=== PATIENT | female | born 1970 | race African-American/Black ===

== ENCOUNTER 2024-10-01 12:18 | Outpatient (CLI) | payer OTHER, SELFPAY ==
--- NOTE | ~2024-10-01 | CT_ITS ---
EXAMINATION: CT abdomen pelvis wo con DATE: 10/01/2024 12:43 INDICATION: Incisional hernia without obstruction or gangrene. TECHNIQUE: Computed tomography (CT) of the abdomen and pelvis was performed without intravenous contr ast. Automated exposure control and iterative reconstruction technique were employed. The dose-length product was 830.70 mGy-cm. COMPARISON: None. FINDINGS: The visualized portions of the lung bases demonstrate mild atelectasis. There is mild eleva tion of right hemidiaphragm. The heart size is normal. No pericardial effusion. There is a 3.2 cm cys t in the liver. There are gallstones in gallbladder, which is normal in size. There is splenosis in t he abdomen. The pancreas, adrenal glands, and kidneys are normal. There is no urolithiasis. There are surgical changes of the sigmoid colon. There are no dilated loops of bowel. The appendix is normal. There is a left-sided spigelian hernia containing nonobstructed small bowel. There are no pathologica lly enlarged lymph nodes. There is no free intraperitoneal fluid. There is a ventral hernia containin g fat. There is severe thoracic spondylosis and mild lumbar spondylosis. IMPRESSION: 1. Left-sided spigelian hernia containing nonobstructed small bowel. 2. Umbilical hernia containing fat. Reviewed, dictated and finalized at location A. [employer]OR [employer]
== END 2024-10-01 12:19 | disposition home or self-care (01) ==
LOC: MICIMG 12:22
PROVIDERS: PCP Surgery; Visit Provider Surgery
DX: K42.9 Umbilical hernia without obstruction or gangrene (principal)
CPT/HCPCS: 74176

== ENCOUNTER 2024-10-31 14:00 | Outpatient (CLI) | payer OTHER, SELFPAY ==
--- NOTE | ~2024-10-31 | MR_ITS ---
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 15 cc MultiHance administered intravenously. COMPARISON: No prior studies for comparison. FINDINGS: There are no abnormalities on the precontrast sequences. There is minimal background parenc hymal enhancement. No enhancing lesions following contrast administration. No areas of enhancement meeting threshold criteria on CAD analysis. No evidence of signal abnormalities in the axillary or i nternal mammary node distributions. LEFT BREAST: There are prominent ducts in the left breast extending to the nipple. There is minimal b ackground parenchymal enhancement. There is a subareolar focus of rapid washout enhancement measuring 5 mm, possibly intraductal. No evidence of signal abnormalities in the axillary or internal mammary node distributions. IMPRESSION: 1: Right breast: Negative. No evidence of malignancy. BI-RADS category 1. Recommend annual mammo graphy follow-up. 2: Left breast: Enhancing 4 mm focus with rapid washout enhancement in the subareolar location, poss ibly intraductal. There is dilation of the ducts more proximally. Recommend correlation with diagnost ic bilateral mammogram and ultrasound. BI-RADS CATEGORY 0 - INCOMPLETE STUDY, NEED ADDITIONAL IMAGING EVALUATION. Reviewed, dictated and finalized at location B. MTABLE ATTENDANT RAILROAD IMPRESSION: 1: Right breast: Negative. No evidence of malignancy. BI-RADS category 1. Recommend annual mammography follow-up. 2: Left breast: Enhancing 4 mm focus with rapid washout enhancement in the sub areolar location, possibly intraductal. There is dilation of the ducts more pro ximally. Recommend correlation with diagnostic bilateral mammogram and ultrasou nd. BI-RADS CATEGORY 0 - INCOMPLETE STUDY, NEED ADDITIONAL IMAGING EVALUATION.
== END 2024-10-31 14:01 | disposition home or self-care (01) ==
PROVIDERS: PCP Physician Assistant; Visit Provider Student in an Organized Health Care Education/Training Program
DX: N64.52 Nipple discharge (principal); R92.8 Other abnormal and inconclusive findings on diagnostic imaging of breast
CPT/HCPCS: 77049; A9577; C8908

== ENCOUNTER 2024-11-26 12:51 | Outpatient (CLI) | payer OTHER, SELFPAY ==
--- NOTE | ~2024-11-26 | MMUS_ITS ---
EXAMINATION: MM diagnostic katharina BI w santa, US breast LT limited HISTORY: Bloody discharge, abnormal breast MRI TECHNIQUE: 3-D tomosynthesis images of the breasts were performed and synthetic 2-D images were gener ated. CAD analysis was submitted and interpreted. High resolution limited left breast ultrasound was performed. COMPARISON: Breast MRI dated 10/31/2024 BREAST PARENCHYMAL COMPOSITION:Not Dense. There are scattered areas of fibroglandular density. FINDINGS: MAMMOGRAPHIC FINDINGS: Parenchymal pattern of the right breast is unremarkable. In the left breast, there are several low-de nsity circumscribed masses in the central breast, largest measuring 10 mm in maximum diameter. No nehemiah picious microcalcifications seen in either breast. ULTRASOUND: There are focally dilated ducts at the 3:00 position left breast, 6 cm from the nipple. No intraducta l mass or other mass lesion identified in the left breast in the region scanned. IMPRESSION: Several circumscribed low-density small central left breast mass is seen mammographically, without d efinite sonographic correlate. By mammographic and sonographic criteria, these would constitute proba kike benign findings, with six-month follow-up mammogram/ultrasound recommended to reassess. Lack of s uspicious mammographic or sonographic findings should not however preclude further workup at this edie e for the suspicious/abnormal finding on recent breast MRI, with a possible enhancing intraductal les ion, possibly intraductal papilloma given history of bloody discharge. Breast surgical consultation i s advised. BI-RADS category 4, suspicious findings. Reviewed, dictated and finalized at location M. ITY COMPLIANCE MANAGER IMPRESSION: Several circumscribed low-density small central left breast mass is seen mammo graphically, without definite sonographic correlate. By mammographic and sonogr aphic criteria, these would constitute probably benign findings, with six-month follow-up mammogram/ultrasound recommended to reassess. Lack of suspicious katharina mographic or sonographic findings should not however preclude further workup at this time for the suspicious/abnormal finding on recent breast MRI, with a pos sible enhancing intraductal lesion, possibly intraductal papilloma given histor y of bloody discharge. Breast surgical consultation is advised. BI-RADS category 4, suspicious findings.
== END 2024-11-26 12:52 | disposition home or self-care (01) ==
LOC: ANHIMG 12:52
PROVIDERS: PCP Physician Assistant; Visit Provider Student in an Organized Health Care Education/Training Program
DX: R92.8 Other abnormal and inconclusive findings on diagnostic imaging of breast (principal)
CPT/HCPCS: 76642; 77062; 77066; G0279

== ENCOUNTER 2024-12-10 14:09 | Outpatient (CLI) | payer OTHER, SELFPAY ==
--- NOTE | 2024-12-10 14:24 | ECG_ITS ---
Test Date: 2024-12-10 14:45:39 Measurements Intervals Bostic Rate: 79 P: 75 HI: 150 QRS: 139 QRSD: 89 T: -30 QT: 396 QTc: 456 Interpretive Statements SINUS RHYTHM POSSIBLE ANTERIOR MYOCARDIAL INFARCTION [30 ms Q WAVE IN V3/V4, OR R < 0.2 mV IN V4], OF INDETERMINATE AGE INFERIOR MYOCARDIAL INFARCTION [40+ ms Q WAVE AND/OR ST/T ABNORMALITY IN II/aVF], PROBABLY OLD No previous ECG available for comparison Electronically Signed On 12-11-2024 10:56:20 GROUNDS MAINTENANCE WORKER by Rod Zuluaga M.D.
--- OUTSIDE RECORDS SUMMARY | 2024-12-10 15:06 | XMS_ITS | Clinical Summary ---
Author Organization [facility] [employer] Address [address] [place] [address] Care Team Providers Care Cell Attendant Name Role Phone Unavailable Primary Care Provider Unavailabl e Source Comments [facility],non-owned Affiliates and Associated Physician Practices is amultiple site organization consisting of ambulatory clinics and hospital sitesin [place], [place], [place] and [place]. This disclosure is being madepursuant to the Care Everywhere program and may not contain all information available regarding this patient. Last updated 18.[facility] [employer] Allergies No known active allergies Medications * Be aware that medications may not be up to date on this document. Alwaysverify current medications with the patient. Medication Sig Dispensed Refills Start Date End Date Status LISINOPRIL PO Active ATORVASTATIN CALCIUM PO Active PHENTERMINE HCL PO Active benzonatate (TESSALON) 200 MG capsuleIndications:Ac dianne bronchitis, unspecified organism Take 1 capsule by mouth 3 times daily as needed for Cough 30 capsule 02/05/2019 Active albuterol HFA (PROVENTIL;VENTOLIN;P ROAIR) 108 (90 BASE) MCG/ACT inhalerIndications:Ac dianne bronchitis, unspecified organism Inhale 2 puffs by mouth every 4 hours as needed 1 Inhaler 02/05/2019 Active Encounters Date Type Department Care Team Description 12/04/2024 4:21 PM ELECTRO MECHANICAL ENGINEER - 12/04/2024 11:59 PM ELECTRO MECHANICAL ENGINEER Hospital Encounter [facility] [address] [place] [id number] Marcos Velasco MD Discharge Disposition: Home or Self Care 12/04/2024 1:34 PM ELECTRO MECHANICAL ENGINEER - 12/04/2024 4:20 PM ELECTRO MECHANICAL ENGINEER Hospital Encounter [facility] [address] [place] [address] Marcos Velasco MD Discharge Disposition: Home or Self Care 12/04/2024 1:33 PM ELECTRO MECHANICAL ENGINEER Hospital Encounter [facility] [address] [place] [address] Marcos Velasco MD Discharge Disposition: Home or Self Care from Last 3 Months Social History Tobacco Use Types Packs/Day Years Used Date Smoking Tobacco: Never Smokeless Tobacco: Never Sex and Gender Information Value Date Recorded Sex Assigned at Not on file Gender Identity Not on file Sexual Orientation Not on file Last Filed Vital Signs Vital Sign Reading Time Taken Comments Blood Pressure 124/86 08/01/2019 12:44 PM CDT Pulse 66 08/01/2019 12:44 PM CDT Temperature 36.7 ??C (98.1 ??F) 08/01/2019 12:44 PM C DT Respiratory Rate 19 08/01/2019 12:44 PM CDT Oxygen Saturation 95% 08/01/2019 12:44 PM CDT Inhaled Oxygen Concentration - - Weight 78.5 kg (173 lb) 08/01/2019 12:44 PM CDT Height 157.5 cm (5' 2 ) 08/01/2019 12:44 PM CDT Body Mass Index 31.64 08/01/2019 12:44 PM CDT Plan of Treatment Health Maintenance Due Date Last Done Comments COLOGUARD (AGES 45-75) - COL ON CA SCREENING 1971 COLON MONITORING 1971 COLONOSCOPY - COLON CA SCREENING 1971 CT COLONOGRAPHY - COLON CA SCREENING 1971 Colorectal Cancer Screening 1971 FIT - COLON CA SCREENING 1971 FLEX SIG - COLON CA SCREENING 1971 MAMMOGRAM 1971 PAP SMEAR 1971 HIV SCREENING 1986 HEPATITIS C SCREENING 06/10/1989 DTAP/TDAP/TD VACCINES (1 - Tdap) 1990 HEPATITIS B VACCINE (1 of 3 - 19+ 3-dose series) 1990 SCREENING FOR DIABETES 02/05/2019 PNEUMOCOCCAL VACCINE 50+ (1 of 1 - PCV) 2021 ZOSTER VACCINE (1 of 2) 2021 COVID-19 VACCINE (2023-2 5 season) 2024 INFLUENZA VACCINE (#1) 2024 DEPRESSION SCREENING 11/12/2024 HIB VACCINE Aged Out No longer eligi ble based on patient's age to complete this topic HPV VACCINE Aged Out No longer eligi ble based on patient's age to complete this topic MENINGOCOCCAL (Group B) VACCINE Aged Out No longer eligible based on patient's age to complete this topic MENINGOCOCCAL VACCINE Aged Out No hayley breonna eligible based on patient's age to complete this topic
--- OUTSIDE RECORDS SUMMARY | 2024-12-10 15:06 | XMS_ITS | Referral Summary ---
Author Organization [facility] Address [address] [place] [address] Care Team Providers Care Sleep Medicine Physician Name Role Phone Unavailable Primary Care Provider Unavailabl e Source Comments [facility],non-owned Affiliates and Associated Physician Practices is amultiple site organization consisting of ambulatory clinics and hospital sitesin [place], [place], [place] and [place]. This disclosure is being madepursuant to the Care Everywhere program and may not contain all information available regarding this patient. Last updated 18.[facility] Encounters Date Type Department Care Team Description 12/04/2024 4:21 PM LEVEL GLASS VIAL FILLER - 12/04/2024 11:59 PM [facility] Hospital Encounter [address] [address] Marcos Velasco MD Discharge Disposition: Home or Self Care 12/04/2024 1:34 PM LEVEL GLASS VIAL FILLER - 12/04/2024 4:20 PM [facility] Hospital Encounter [address] [address] Marcos Velasco MD Discharge Disposition: Home or Self Care 12/04/2024 1:33 PM [facility] Hospital Encounter [address] [address] Marcos Velasco MD Discharge Disposition: Home or Self Care from Last 3 Months Allergies No known active allergies Medications * Be aware that medications may not be up to date on this document. Alwaysverify current medications with the patient. Medication Sig Dispensed Refills Start Date End Date Status LISINOPRIL PO Active ATORVASTATIN CALCIUM PO Active PHENTERMINE HCL PO Active benzonatate (TESSALON) 200 MG capsuleIndications:Ac [place] bronchitis, unspecified organism Take 1 capsule by mouth 3 times daily as needed for Cough 30 capsule 02/05/2019 Active albuterol HFA (PROVENTIL;VENTOLIN;P ROAIR) 108 (90 BASE) MCG/ACT inhalerIndications:Ac [place] bronchitis, unspecified organism Inhale 2 puffs by mouth every 4 hours as needed 1 Inhaler 02/05/2019 Active Social History Tobacco Use Types Packs/Day Years [...] 08/01/2019 12:44 PM CDT Plan of Treatment Not on file Administered Medications
--- OUTSIDE RECORDS SUMMARY | 2024-12-10 15:06 | XMS_ITS | Patient Health Summary ---
Author Organization [facility] Address [address] [place] [address] Care Team Providers Care Machine Sorter Name Role Phone Unavailable Primary Care Provider Unavailabl e Note from [facility],non-owned Affiliates and Associated Physician Practices is amultiple site organization consisting of ambulatory clinics and hospital sitesin [place], [place], [place] and [place]. This disclosure is being madepursuant to the Care Everywhere program and may not contain all information available regarding this patient. Last updated 18.[facility] [employer] Allergies No known active allergies Medications * Be aware that medications may not be up to date on this document. Alwaysverify current medications with the patient. * LISINOPRIL PO * ATORVASTATIN CALCIUM PO * PHENTERMINE HCL PO * benzonatate (TESSALON) 200 MG capsule(Started 02/05/2019) Take 1 capsule by mouth 3 times daily as needed for Cough * albuterol HFA (PROVENTIL;VENTOLIN;PROAIR) 108 (90 BASE) MCG/ACT inhaler (Started 02/05/2019) Inhale 2 puffs by mouth every 4 hours as needed Social History Tobacco Use Types Packs/Day Years [...] Mass Index 31.64 08/01/2019 12:44 PM CDT Procedures * SKIN TEST PPD - POINT OF CARE(Performed 06/11/2020) Performed for PPD screening test * CULTURE URINE(Performed 08/01/2019) Performed for Acute cystitis without hematuria * URINALYSIS AUTO - POINT OF CARE (AMB) STL(Performed 08/01/2019) Performed for Acute cystitis without hematuria Results * SKIN TEST PPD - POINT OF CARE (06/11/2020 10:32 AM CDT) PPD 0 mm Other MISCELLANEOUS SAMPLE S / Unknown 06/11/2020 10:32 AM CDT Chanda Zendejas [employer] DOCK [employer] - POINT OF CARE ORDERABLES * CULTURE URINE (08/01/2019 1:31 PM CDT) Urine Culture Routine Final report [facility] ACCOUNT BILL Result 1 No growth [facility] ACCOUNT BILL Urine URINE SPECIMEN OBTAINED BY CLEAN CATCH PROCEDURE / Unknown 08/01/2019 1:31 PM CDT 08/01/2019 Narrative Resulting Agency Comment Lab Testing performed at: [facility] [place] [address] [facility] ??[facility] [id number] Trina Ann [employer]AT DOCK OPERATOR[facility] - MICROBIOLOG Y ORDERABLES [facility] ACCOUNT BILL [address] [place] [address] * URINALYSIS AUTO - POINT OF CARE (AMB) STL (08/01/2019) Clarity UA POCT clear Color UA POCT light yellow Leukocyte UA 70 Negative Nitrite UA POCT Negative Negative Urobilinogen UA 0.2 0.1 - 1.0 Protein UA POCT 15 Negative pH UA 6.0 5.0 - 8.0 pH units Blood UA negative Negative Specific [place] UA POCT 1.005 1.002 - 1.030 Ketone UA Negative Negative Bilirubin UA POCT Negative Negative Glucose UA Negative Negative Expiration Date 01/28/21 Lot # [id number] Verified Yes Yes Urine URINE / Unknown 08/01/2019 Trina Ann [employer]AT DOCK OPERATOR[facility] - POINT OF CA RE ORDERABLES
--- OUTSIDE RECORDS SUMMARY | 2024-12-10 15:06 | XMS_ITS | Clinical Summary ---
Author Organization [facility] Address [address] [place] [address] Care Team Providers Care Emulsification Operator Name Role Phone Unavailable Primary Care Provider Unavailabl e Social History Tobacco Use Types Packs/Day Years Used Date Smoking Tobacco: Never Assessed Comments Unknown Sex and Gender Information Value Date Recorded Sex Assigned at Not on file Legal Sex Female 11:40 AM BRICKMASON Gender Identity Not on file Sexual Orientation Not on file Plan of Treatment Health Maintenance Due Date Last Done Comments Hepatitis C Virus (HCV) Screening 1971 TdaP Immunization 1971 Hepatitis B Immunization (1 of 3 - 19+ 3-dose series) 1990 Pap Smear 1992 Cervical Cancer Screening (CCS) 2001 HPV/Cotest 2001 Colonoscopy 2016 Colorectal Cancer Screening 2016 Cologuard 2021 Immunochemical Fecal Occult Blood 2021 Mammogram 2021 Pneumococcal Immunization (5 0+ years) (1 of 1 - PCV) 2021 Zoster Immunization (1 of 2) 2021 Influenza Immunization (#1) 2024 SARS-COV-2 Immunization ( - 2023- season) 2024 Respiratory Syncytial Virus (RSV) Immunization (Adult) (1 - 1-dose 75+ series) 2046 Meningococcal Immunization (ACWY) Aged Out No longer eligible based on patient's age to complete this topic Pneumococcal Immunization Combined Aged Out No longer eligible based on patient's age to complete this topic Rotavirus Immunization Aged Out No lo nger eligible based on patient's age to complete this topic
[2024-12-10 15:26] LABS: Hematocrit 42.6 % (37.0-47.0); Hemoglobin 14.4 g/dL (12.0-15.0)
[2024-12-10 15:36] LABS: Anion Gap 12 mmol/L (4-12); Blood Urea Nitrogen 15 mg/dL (7-17); Calcium 8.8 mg/dL (8.4-10.2); Carbon Dioxide 26 mmol/L (22-30); Chloride 99 mmol/L (98-107); Estimated Glomerular Filt Rate > 60; Glucose 102 mg/dL (65-110); Potassium 3.2 mmol/L (3.4-5.0); Sodium 137 mmol/L (137-145)
== END 2024-12-10 14:10 | disposition home or self-care (01) ==
LOC: ANHSURGERY 14:13
PROVIDERS: Anesthesiology; PCP Physician Assistant; Visit Provider Surgery
DX: K43.2 Incisional hernia without obstruction or gangrene (principal); E11.9 Type 2 diabetes mellitus without complications; I10 Essential (primary) hypertension
CPT/HCPCS: 36415; 80048; 85014; 85018; 86850; 86900; 86901; 93005

== ENCOUNTER 2025-01-28 08:42 | Outpatient (CLI) | payer OTHER, SELFPAY ==
--- NOTE | ~2025-01-28 | NM_ITS ---
EXAMINATION: NM elli stress w perfusion DATE: 01/28/2025 11:37 INDICATION: Encounter for preprocedural cardiovascular exam TECHNIQUE: Rest images were obtained following intravenous administration of 10.3 mCi Tc99m tetrofosm in (Myoview). The patient was infused intravenously with Lexiscan (Regadenoson). Then, 31.8 mCi Tc99m tetrofosmin (Myoview) was administered intravenously, and stress images were obtained. Data was livan nstructed into short axis and horizontal and vertical long axis SPECT images. Gated SPECT images were also obtained. COMPARISON: None. FINDINGS: There is no definite reversible or fixed perfusion abnormality to suggest ischemia or infar ction. There is normal left ventricular chamber size, wall motion and ejection fraction. Left ventr icular ejection fraction measures >70%. IMPRESSION: 1. Normal myocardial perfusion at rest and during stress. 2. Left ventricular ejection fraction measuring >70%. Reviewed, dictated and finalized at location A.
--- NOTE | 2025-01-28 08:48 | EST_ITS ---
Patient Info Name: Tri Parker Age: 54 years : 1970 Gender: Female Ht: 62 in Wt: 170 lbs BSA: 1.87 m2 HR: 63 bpm BP: 114 / 75 mmHg Exam Date: 01/28/2025 10:39 AM Exam Location: Echo Lab Patient Status: Outpatient Admit Date: 01/28/2025 Staff Ordering Physician: Franko Meraz DO Attending Provider: Franko Meraz DO Exercise Technologist: nick garza Exercise Physician: Franko Meraz DO Exam Type: CA stress elli w NM Study Info A regadenoson stress test was performed. Summary 1. 1. Abnormal lexiscan stress test for ischemic ST changes by ECG criteria. 2. 2. Stable hemodynamics throughout the test. 3. 3. Nuclear scan to follow and will be reported separately. Please correlate with it. 4. 4. Patient informed of the above results. Protocol: Lexiscan Stress ECG Details Stage: REST Duration (min): 2 min : 55 sec HR (bpm): 64 SBP (mmHg): 114 DBP (mmHg): 75 Stage: REST Duration (min): 15 min : 33 sec HR (bpm): 63 SBP (mmHg): 114 DBP (mmHg): 75 Stage: STAGE 1 Duration (min): 1 min : 0 sec HR (bpm): 100 SBP (mmHg): 126 DBP (mmHg): 81 Stage: RECOVERY Duration (min): 1 min : 0 sec HR (bpm): 100 SBP (mmHg): 126 DBP (mmHg): 81 Stage: RECOVERY Duration (min): 2 min : 0 sec HR (bpm): 93 SBP (mmHg): 126 DBP (mmHg): 81 Stage: RECOVERY Duration (min): 3 min : 0 sec HR (bpm): 93 SBP (mmHg): 113 DBP (mmHg): 80 Stage: RECOVERY Duration (min): 3 min : 14 sec HR (bpm): 87 SBP (mmHg): 113 DBP (mmHg): 80 Rest HR: 63 bpm Peak HR: 103 bpm Rest Sys BP: 114 mmHg Peak Sys BP: 126 mmHg Max Pred HR: 167 bpm % Max Pred HR: 62 % Target HR: 142 bpm Max RPP: 12,978 bpm*mmHg Termination Reason: Completed protocol Cardiac Symptoms: Shortness of breath Total Time: 1 min : 0 sec Rest Alfaro BP: 75 mmHg Peak Alfaro BP: 81 mmHg Total Dose: 0.4 mg Resting ECG Sinus rhythm. Stress ECG [address] depression in anterolateral leads. Arrhythmias None. Report Signatures
--- NOTE | 2025-01-28 08:48 | ECHO_ITS ---
Patient Info Name: Tri Parker Age: 54 years : 1970 Gender: Female Ht: 62 in Wt: 170 lbs BSA: 1.87 m2 HR: 61 bpm BP: 127 / 84 mmHg Technical Quality: Poor Exam Date: 01/28/2025 9:05 AM Exam Location: Echo Lab Patient Status: Outpatient Admit Date: 01/28/2025 Staff Ordering Physician: Franko Meraz DO Helper Driver: Bhumi Carrero RDCS Attending Provider: Franko Meraz DO Referring Physician: Kt HUBBARD; Exam Type: CA echo dop color flow w con Study Info Indications R06.09 - Other forms of dyspnea Complete two-dimensional, color flow and Doppler transthoracic echocardiogram is performed with contrast to opacify the left ventricle and to improve the deliniation of the left ventricle endocardial borders. Contrast/Agitated Saline Contrast/Ag. Saline: Definity Amount: 2.00 ml Existing IV Access: No IV Access Condition: patent with no signs of infiltration New IV Access: Left Reason for Poor Study: poor echocardiographic windows Summary 1. Definity contrast administered improved wall motion interpretation. 2. Left ventricular chamber dimension is normal. 3. Left ventricular systolic function is normal, estimated at 60-65%. 4. The left ventricular diastolic function is abnormal. 5. E/e' 10 is mildly elevated. 6. Right ventricular chamber dimension is mildly enlarged. 7. No pulmonary hypertension, estimated pulmonary arterial systolic pressure is 27 mmHg. Left Ventricle E/e' 10 is mildly elevated. Definity contrast administered improved wall motion interpretation. Left ventricular chamber dimension is normal. Left ventricular systolic function is normal, estimated at 60-65%. The left ventricular diastolic function is abnormal. Right Ventricle Right ventricular chamber dimension is mildly enlarged. Right ventricular systolic function is normal. Left Atria Left atrial chamber dimension is normal. Right Atria Right atrial chamber dimension is normal. Aortic Valve The aortic valve is trileaflet. There is no aortic valve stenosis. There is no aortic valve regurgitation. Pulmonic Valve There is no pulmonic regurgitation. Mitral Valve There is no mitral valve stenosis. There is no mitral valve regurgitation. Tricuspid Valve There is no tricuspid valve regurgitation. No pulmonary hypertension, estimated pulmonary arterial systolic pressure is 27 mmHg. Pericardium/Pleural There is no pericardial effusion. Inferior Vena Cava Normal inferior vena cava with >50% collapse upon inspiration consistent with normal right atrial pressure, 5 mmHg. Aorta The aortic root size at the sinus of Valsalva is normal. Left Ventricular Outflow Tract Name Value Normal LVOT 2D LVOT Diameter 1.96 cm LVOT Doppler LVOT Peak Gradient 2 mmHg LVOT Mean Gradient 1 mmHg LVOT VTI 15.84 cm LVOT VTI/AV VTI Ratio 0.84 LVOT Stroke Volume 47.59 ml LVOT CO 9.01 l/min LVOT CI 4.83 L/min/m2 Mitral Valve Name Value Normal MV Doppler MV Decel [place] 330.77 cm/s2 MV PHT 0 s MV Area (PHT) 3.59 cm2 4.00-5.00 MV Diastolic Function MV E Peak Velocity 69.84 cm/s MV A Peak Velocity 58.28 cm/s MV E/A 1.20 MV Decel Time 0 s MV Annular TDI MV E/e' (Septal) 11.77 <=8.00 MV E/e' (Lateral) 10.05 <=8.00 MV E/e' (Average) 10.91 Tricuspid Valve Name Value Normal TV Regurgitation Doppler TR Peak Velocity 232.30 cm/s TR Peak Gradient 22 mmHg Estimated PAP/RSVP RA Pressure 5 mmHg <=5 PA Systolic Pressure 27 mmHg <36 RV Systolic Pressure 27 mmHg <36 Aorta Name Value Normal Ascending Aorta Ao Root Diameter (MM) 2.79 cm Ao Root Diam Index (MM) 1.49 cm/m2 Aortic Valve Name Value Normal AV Doppler AV Peak Velocity 92.84 cm/s AV Peak Gradient 3 mmHg AV Mean Gradient 2 mmHg AV VTI 18.85 cm AV Area (Cont Eq VTI) 2.53 cm2 >=3.00 AV Area (Cont Eq Clarence) 2.24 cm2 AV Regurgitation 2D LVOT Area 3.00 cm2 Ventricles Name Value Normal LV Dimensions 2D/MM IVS Diastolic Thickness (2D) 0.97 cm 0.60-1.00 LVID Diastole (2D) 4.23 cm 3.80-5.20 LVIW Diastolic Thickness (2D) 0.91 cm 0.60-0.90 LVID Systole (2D) 2.57 cm 2.20-3.50 LVOT Diameter 1.96 cm LV Mass (2D Cubed) 127.33 g 67.00-162.00 LV Mass Index (2D Cubed) 0.01 g/cm2 0.00-0.01 Relative Wall Thickness (2D) 0.43 LV Fractional Shortening/Ejection Fraction 2D/MM LV Fractional Shortening (2D) 39 % 27-45 LV EF (2D Teicholz) 70 % 54-74 LV Diastolic Volume (4C MOD) 47.58 ml LV EF (4C MOD) 59 % LV Diastolic Volume (2C MOD) 66.02 ml LV EF (2C MOD) 75 % LV Diastolic Volume (BP MOD) 56.85 ml 46.00-106.00 LV Diastolic Volume Index (BP MOD) 0.03 l/m2 0.03-0.06 LV Systolic Volume (BP MOD) 18.03 ml 14.00-42.00 LV Systolic Volume Index (BP MOD) 0.01 l/m2 0.01-0.02 LV EF (BP MOD) 68 % 54-74 LV Diastolic Length (4C) 6.59 cm LV Systolic Length (4C) 4.85 cm LV Stroke Volume (4C MOD) 27.98 ml RV Dimensions 2D/MM RVID Diastole (2D) 3.28 cm 2.50-3.50 Atria Name Value Normal LA Dimensions LA Dimension (MM) 3.15 cm 2.70-3.80 LA Volume (4C A-L) 33.71 ml LA Volume (BP A-L) 32.52 ml Report Signatures
--- OUTSIDE RECORDS SUMMARY | 2025-01-28 09:14 | XMS_ITS | CONTINUITY OF CARE DOCUMENT ---
Author Name alpesh betts Address Unknown Organization [facility] Address [address] [place] [address] [place] [id number] Phone [phone] Care Team Providers Care Programming Development Project Manager Name Role Phone Bishop Medina MD Unavailable HATTIE MÉNDEZ Unavailable HATTIE MÉNDEZ Unavailable INSURANCE PROVIDERS Payer name Policy type / Coverage type [employer] party ID [id number] [id number] Other [id number]
--- OUTSIDE RECORDS SUMMARY | 2025-01-28 09:14 | XMS_ITS | Data Portability ---
Author Organization MD - [facility] [employer], Main Office Address [address] [place] [address] Assessment No assessment recorded. Plan of Treatment Reminders Order Date Submit Date Provider Last Modified By Organization Details Last Modified Time Details Appointments Follow Up 2024 01:15P ROBYN Davis Not available Not available Not available Lab HbA1c (hemoglob in A1c), blood 2024 025 [email or web address] [facility], [address] [place] [address], [id number], 12/09/2024 14:55:59 HbA1c (hemoglob in A1c), blood 2023 024 [email or web address] [facility], [address] [place] [address], [id number], 08/11/2024 08:31:09 HbA1c (hemoglob in A1c), blood 2023 024 HIEU [facility], [address] [place] [address], [address], 05/01/2024 22:43:52 HbA1c (hemoglob in A1c), blood 2023 024 [place], [address] [place] [address], [address], 01/30/2024 01:00:10 Referral None recorded. Procedures None recorded. Surgeries None recorded. Imaging MAMMO, diagnosti c, digital, bilateral - Please call pt to schedule 2023 024 [facility] ([facility]), [address] [place], [address], 09/10/2024 11:18:51 US, breast, unilatera l - Please call pt to schedule 2023 024 [facility] ([facility]), [address] [place], [address], 09/10/2024 11:24:07 Medication Orders Ozempic 2 mg/dose (8 mg/3 mL) subcutane ous pen injector 2023 [place] [employer], [facility], [place], [address], 08/04/2024 15:40:50 Patient TargetsNo targets recorded. Patient InstructionsNo instructions recorded. Reason for Referral None Reported. Results Created Date Observation Date Name Description Value Unit Range Abnormal Flag Note LastModifiedBy Organization Detail LastModifiedTime 07/14/2007/15/2023 COMP. METAB OLIC PANEL (14) glucose 86 mg/dL 70-99 Not Available [facility] ([facility]) [address] [place], [address], 07/15/2023 08:09:22 07/14/20 23 07/15/2023 COMP. METAB OLIC PANEL (14) BUN 18 mg/dL 6-24 Not Available [facility] ([facility]) [address] [place], [address], 07/15/2023 08:09:22 07/14/20 23 07/15/2023 COMP. METAB OLIC PANEL (14) creatinine 0.75 mg/dL 0.57-1 .00 Not Available [facility] ([facility]) [address] [place], [address], 07/15/2023 08:09:22 07/14/20 23 07/15/2023 COMP. METAB OLIC PANEL (14) eGFR 96 mL/mi n/1.7 3 >59 Not Available [facility] ([facility]) [address], [place], [address], 07/15/2023 08:09:22 07/14/20 23 07/15/2023 COMP. METAB OLIC PANEL (14) BUN/creatini ne ratio 24 9-23 above high normal Not Available [facility] ([facility]) [address] [place], [address], 07/15/2023 08:09:22 07/14/20 23 07/15/2023 COMP. METAB OLIC PANEL (14) sodium 140 mmol/ L 134-14 4 Not Available [facility] ([facility]) [address] [place], [address], 07/15/2023 08:09:22 07/14/20 23 07/15/2023 COMP. METAB OLIC PANEL (14) potassium 3.7 mmol/ L 3.5-5. 2 Not Available [facility] ([facility]) [address], [place], [address], 07/15/2023 08:09:22 07/14/20 23 07/15/2023 COMP. METAB OLIC PANEL (14) chloride 101 mmol/ L 96-106 Not Available [facility] ([facility]) [address] [place], [address], 07/15/2023 08:09:22 07/14/20 23 07/15/2023 COMP. METAB OLIC PANEL (14) carbon dioxide, total 22 mmol/ L 20-29 Not Available [facility] ([facility]) [address] [facility] [place], [address], 07/15/2023 08:09:22 07/14/20 23 07/15/2023 COMP. METAB OLIC PANEL (14) calcium 9.5 mg/dL 8.7-10 .2 Not Available [facility] ([facility]) [address] [facility] [place], [address], 07/15/2023 08:09:22 07/14/20 23 07/15/2023 COMP. METAB OLIC PANEL (14) protein, total 7.2 g/dL 6.0-8. 5 Not Available [facility] ([facility]) [address], [place], [address], 07/15/2023 08:09:22 07/14/20 23 07/15/2023 COMP. METAB OLIC PANEL (14) albumin 4.0 g/dL 3.8-4. 9 Not Available [facility] ([facility]) [address], [place], [address], 07/15/2023 08:09:22 07/14/20 23 07/15/2023 COMP. METAB OLIC PANEL (14) globulin, total 3.2 g/dL 1.5-4. 5 Not Available [facility] ([facility]) [address], [place], [address], 07/15/2023 08:09:22 07/14/20 23 07/15/2023 COMP. METAB OLIC PANEL (14) A/G ratio 1.3 1.2-2. 2 Not Available [facility] ([facility]) [address], [place], [address], 07/15/2023 08:09:22 07/14/20 23 07/15/2023 COMP. METAB OLIC PANEL (14) bilirubin, total 1.0 mg/dL 0.0-1. 2 Not Available [facility] ([facility]) [address], [place], [address], 07/15/2023 08:09:22 07/14/20 23 07/15/2023 COMP. METAB OLIC PANEL (14) alkaline phosphatase 81 IU/L 44-121 Not Available [facility] ([facility]) [address], [place], [address], 07/15/2023 08:09:22 07/14/20 23 07/15/2023 COMP. METAB OLIC PANEL (14) AST (SGOT) 19 IU/L 0-40 Not Available [facility] ([facility]) [address] [facility] [place], [address], 07/15/2023 08:09:22 07/14/20 23 07/15/2023 COMP. METAB OLIC PANEL (14) ALT (SGPT) 17 IU/L 0-32 Not Available [facility] ([facility]) [address] [facility] [place], [address], 07/15/2023 08:09:22 07/14/20 23 07/15/2023 LIPID PANEL cholesterol, total 152 mg/dL 100-19 9 Not Available [facility] ([facility]) [address] [facility] [place], [address], 07/15/2023 08:09:23 07/14/20 23 07/15/2023 LIPID PANEL triglyceride s 84 mg/dL 0-149 Not Available [facility] ([facility]) [address] [facility] [place], [address], 07/15/2023 08:09:23 07/14/20 23 07/15/2023 LIPID PANEL HDL cholesterol 37 mg/dL >39 below low normal Not Available [facility] ([facility]) [address] [facility] [place], [address], 07/15/2023 08:09:23 07/14/20 23 07/15/2023 LIPID PANEL VLDL cholesterol adriane 16 mg/dL 5-40 Not Available [facility] ([facility]) [address] [facility] [place], [address], 07/15/2023 08:09:23 07/14/20 23 07/15/2023 LIPID PANEL LDL chol calc (nih) 99 mg/dL 0-99 Not Available [facility] ([facility]) [address] [facility] [place], [address], 07/15/2023 08:09:23 07/14/20 23 07/15/2023 LIPID PANEL 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 Not Available [facility] ([facility]) [address] [facility], [place], [address], 07/15/2023 08:09:23 07/30/20 23 07/30/2023 scree noe breas t [place], bilat [facility] [address] [place] [address] [phone] Aure rodriguez Name: GEOVANNA PARKER Access ion #: [id number] Sex: F : 1969 1 Dictat ed By: Nghia Abraham Attend ing Physic eryn: ELKHAT IB, RUNDA Orderi ng Physic eryn: ELKHAT IB, RUNDA Exam Date: 2022 13:53 PM Exam Name: MG VASQUEZN BREAST [place] BILAT Admitt ing Diagno sis(es ): Compar brian: 2 Screen ing mammog domenic Techni que: Bilate ral CC and latera l images obtain ed are fulfil led with bilate ral tomosy nsthes is. Breast compos ition: fatty. Digita l techni que per standa rd protoc ol Findin gs: No suspic ious mass or calcif icatio n is identi fied. No gladis ectura l distor tion is seen. There are no abnorm alitie s around the nipple areola r comple x. No adenop athy is apprec iated. . Conclu conchis: No mammog raphic eviden ce of malign clary. Mammog raphic assess ment catego ry: BI-RAD S catego ry: 1 Negati ve A letter with the result s of this mammog domenic was mailed to the aure rodriguez [employer] on[employer] ly Signed by: Nghia Abraham at 2022 16:14: 21 PM Page 1 [email or web address] [facility] (Imaging) [address] [place], [address], 08/03/2023 13:10:23 07/30/20 23 07/30/2023 MAMMO , scree noe, bilat eral No observ ation record ed. [email or web address] [facility] [address] [place], [address], 08/03/2023 13:10:23 09/10/20 24 09/10/2024 CT, abdom en + pelvi s, w/o contr ast No observ ation record ed. [facility] [address] [place], [address], 09/22/2024 12:09:44 09/10/20 24 09/10/2024 MAMMO , diagn ostic , digit al, bilat eral No observ ation record ed. [facility] [address] [place], [address], 09/22/2024 12:09:45 09/10/20 24 09/10/2024 US, breas t, unila teral No observ ation record ed. [facility] [address] [place], [address], 09/22/2024 12:09:45 09/10/20 24 09/10/2024 MAMMO , diagn ostic , digit al, bilat eral No observ ation record ed. [facility] [address] [place], [address], 09/22/2024 12:09:46 10/31/20 24 10/31/2024 MRI, breas t, bilat eral, w/wo contr ast No observ ation record ed. [address], [address], 11/03/2024 11:33:29 11/26/19 25 11/26/2024 MAMMO , diagn ostic , digit al, bilat eral No observ ation record ed. [address], [address], 11/27/2024 08:07:26 12/17/19 25 12/17/2024 rhyth m strip , EKG* No observ ation record ed. [address] [facility] [address], [place], [address], 12/17/2024 11:15:44 Result Notes None recorded. Problems Name Problem SNOMED Code Status Onset Date Resolution Date Notes Provider Name and Address Organization Details Recorded Time Chest wall pain 553729270 Active Not Available [facility] 3 07:35:24 Foot callus 446776632 Active Not Available [facility] 3 07:35:24 Headache 17405448 Active Not Available [facility] 3 07:35:24 Anemia 919455274 Active Not Available [facility] 3 07:35:24 Contact dermatitis 64060549 Active Not Available [facility] 3 07:35:24 Postcoital bleeding 05669806 Active Not Available [facility] 3 07:35:24 Closed fracture of lower limb 22624198 Active Not Available [facility] 3 07:35:24 Essential hypertension 28139145 Active Not Available [facility] 3 07:35:24 Chronic cough 83598041 Active Not Available [facility] 3 07:35:24 Type 2 diabetes mellitus without complication 700248446 Active 2022 Not Available [facility] 3 07:35:24 Low back pain 661693958 Active 2022 Not Available [facility] 3 07:35:24 Hyperlipidemi a 31290687 Active 2022 Not Available [facility] 3 07:35:24 Chronic idiopathic constipation 79856151 Active 2022 Not Available [facility] 3 07:35:24 Ventral incisional hernia 635113860 Active 2022 Not Available [facility] 3 07:35:24 Bleeding from nipple 421630909 Active [address], [place], [address] , [facility] [employer] [facility] 4 15:29:49 Discharge from breast 691238965 Active 2023 ROBYN Ware [address], [place], [address] , [facility] [employer] [facility] 4 11:26:16 Discharge from nipple 49265068 Active 2023 Marisol Correa RN null, [facility] 4 10:27:56 Pre-surgery evaluation Active 2024 ROBYN Ware [address], [place], [address] , [facility] [employer] [facility] 5 13:38:43 Problem Notes None recorded. Procedures Surgical History Date Name Laterality Status Provider Name and Address Organization Details Recorded Time Colostomy completed Not Available [facility] 0 01/10/2023 06:42:36 Thyroid Surgery completed Not Available [facility] 01/10/2023 06:42:36 Hysterectomy completed Not Available [facility] 01/10/2023 06:42:36 Hernia Surgery completed Not Available [facility] 01/10/2023 06:42:36 procedure on spleen completed Not Available [facility] 01/10/2023 06:42:36 Imaging Results Imaging Date Name Status LastModified by Organiz ation Details LastModified Time 07/30/2023 screening breast [place], bilat completed [address] (Imaging) [address] [place], [address], 08/03/2023 13:10:23 07/30/2023 MAMMO, screening, bilateral completed [address] [place], [address], 08/03/2023 13:10:23 09/10/2024 CT, abdomen + pelvis, w/o contrast completed [facility] [address] [place], [address], 09/22/2024 12:09:44 09/10/2024 MAMMO, diagnostic, digital, bilateral completed [facility] [address] [place], [address], 09/22/2024 12:09:45 09/10/2024 US, breast, unilateral completed [facility] [address] [place], [address], 09/22/2024 12:09:45 09/10/2024 MAMMO, diagnostic, digital, bilateral completed [facility] [address] [place], [address], 09/22/2024 12:09:46 10/31/2024 MRI, breast, bilateral, w/wo contrast completed [address], [address], 11/03/2024 11:33:29 11/26/2024 MAMMO, diagnostic, digital, bilateral completed [address], [address], 11/27/2024 08:07:26 12/17/2024 rhythm strip, EKG* completed [address], [address], 12/17/2024 11:15:44 Procedure Notes None recorded. Medical Equipment None Reported. Allergies No known drug allergies Medications Name Sig Start Date Stop Date Status Note LastModified by Organization Details LastModified Time Prescriptio n - Prior Authorizati on Request active Not Available Not Available N ot Available cyclobenzap rine 10 mg tablet TAKE 1 TABLET BY MOUTH THREE TIMES DAILY NEEDED active Not Available Not Available No t Available Augmentin 875 mg-125 mg tablet Take 1 tablet every 12 hours by oral route. active Not Available Not Available No t Available doxycycline hyclate 100 mg capsule active Not Available Not Available N ot Available atorvastati n 20 mg tablet TAKE 1 TABLET DAILY 2024 active Not Available Not Available Not Avai lable clindamycin HCl 300 mg capsule active Not Available Not Available Not Available ketoconazol e 200 mg tablet Take 1 tablet every day by oral route for 10 days. active Not Available Not Available No t Available azithromyci n 250 mg tablet TK 2 TS PO ON DAY 1, THEN TK 1 T PO D FOR 4 DAYS 10/09 completed Not Available Not Available Not Available benzonatate 200 mg capsule TAKE 1 CAPSULE BY MOUTH THREE TIMES DAILY NEEDED 06/26 completed Not Available Not Available Not Available hydrocodone 5 mg-acetamin ophen 325 mg tablet 11/02 completed Not Available Not Available Not Available Medrol (Jer) 4 mg tablets in a dose pack as directed active Not Available Not Available No t Available penicillin V potassium 500 mg tablet 11/02 completed Not Available Not Available Not Available phentermine 37.5 mg tablet TK 1 T PO QAM active Not Available Not Available No t Available ciprofloxac in 500 mg tablet Take 1 tablet every 12 hours by oral route. active Not Available Not Available No t Available sulfamethox azole 800 mg-trimetho prim 160 mg tablet TAKE 1 TABLET BY MOUTH TWICE DAILY 06/24 completed Not Available Not Available Not Available tramadol 50 mg tablet TK 1 T PO Q 6 H PRN P active Not Available Not Available No t Available triamcinolo ne acetonide 0.1 % topical cream APPLY EXTERNALL Y TO THE AFFECTED AREA TWICE DAILY active Not Available Not Available No t Available losartan 100 mg-hydrochl orothiazide 25 mg tablet TAKE 1 TABLET DAILY 2023 active Not Available Not Available Not Avai lable oxycodone-a cetaminophe n 5 mg-325 mg tablet TK 1 T PO Q 4-6 H PRN P active Not Available Not Available No t Available amoxicillin 875 mg tablet 04/14 completed Not Available Not Available Not Available triamcinolo ne acetonide 0.025 % topical cream 11/15 completed Not Available Not Available Not Available OneTouch Ultra Test strips test 3 times daily 2023 active Not Available Not Available Not Avai lable benzonatate 100 mg capsule TK 1 C PO TID 11/02 completed Not Available Not Available Not Available clotrimazol e-betametha sone 1 %-0.05 % topical cream apply to affected area bid in the morning and in the evening 11/15 completed Not Available Not Available Not Available lisinopril 20 mg-hydrochl orothiazide 25 mg tablet 1 po daily active Not Available Not Available No t Available hydrocodone 5 mg-acetamin ophen 500 mg tablet active Not Available Not Available No t Available hydrochloro thiazide 25 mg tablet Take 1 tablet every day by oral route. active Not Available Not Available No t Available mupirocin 2 % topical ointment active Not Available Not Available Not Available ibuprofen 600 mg tablet active Not Available Not Available Not Available Septra DS 800 mg-160 mg tablet 06/24 completed Not Available Not Available Not Available metformin ER 500 mg tablet,exte nded release 24 hr TAKE 1 TABLET BY MOUTH EVERY DAY active Not Available Not Available No t Available Premarin 0.625 mg tablet active Not Available Not Available Not Available nitrofurant oin monohydrate /macrocryst als 100 mg capsule 04/14 completed Not Available Not Available Not Available ProAir HFA 90 mcg/actuati on aerosol inhaler 11/24 completed Not Available Not Available Not Available peg 3350-electr olytes 236 gram-22.74 gram-6.74 gram-5.86 gram solution MIX AND DRINK OVER 2-3 H STARTING AT 7AM active Not Available Not Available No t Available Eucrisa 2 % topical ointment 04/14 completed Not Available Not Available Not Available Ozempic 0.25 mg or 0.5 mg (2 mg/1.5 mL) subcutaneou s pen injector Inject 0.25 mg every week by subcutane ous route. 04/30 completed Not Available Not Available Not Available ID NOW COVID-19 Test Kit TEST DIRECTED active Not Available Not Available No t Available COVID-19 test specimen collection TEST DIRECTED 06/26 completed Not Available Not Available Not Available Ozempic 1 mg/dose (4 mg/3 mL) subcutaneou s pen injector INJECT 1mg SUBCUTANE OUSLY EVERY WEEK 2023 active Not Available Not Available Not Avai lable Ozempic 2 mg/dose (8 mg/3 mL) subcutaneou s pen injector Inject 2 mg every week by subcutane ous route for 30 days. 2023 active Not Available Not Available Not Avai lable Mounjaro 2.5 mg/0.5 mL subcutaneou s pen injector Inject 2.5 mg every week by subcutane ous route. 04/30 completed Not Available Not Available Not Available Ozempic 0.25 mg or 0.5 mg (2 mg/3 mL) subcutaneou s pen injector INJECT 0.25 MG UNDER THE SKIN EVERY WEEK 01/28 completed Not Available Not Available Not Available Vitals Date Recorded Body height Body mass index (BMI) Body weight Body temperature Heart rate Oxygen saturation Oxygen saturation in Arterial blood by Pulse oximetry Systolic blood pressure Diastolic blood pressure Provider Name and Address Organization Details Last Updated DateTime 3 157.48 cm 31.3 kg/m2 36893.3 g 97.6 [degF] 74 /min 97 % 97 % 96 mm[Hg] 62 mm[Hg] Karin barton CMA [facility] [employer] 3 15:48:11 Date Recorded Body height Body mass index (BMI) Body weight Oxygen saturation Oxygen saturation in Arterial blood by Pulse oximetry Respiratory rate Heart rate Body temperature Systolic blood pressure Diastolic blood pressure Provider Name and Address Organization Details Last Updated DateTime 4 157.48 cm 31.6 kg/m2 03642.4 8 g 98 % 98 % 16 /min 76 /min 97.6 [degF] 116 mm[Hg] 74 mm[Hg] Sepideh Cr RN [facility] [employer] 4 15:01:37 Date Recorded Body height Body mass index (BMI) Body weight Body temperature Heart rate Oxygen saturation Oxygen saturation in Arterial blood by Pulse oximetry Respiratory rate Systolic blood pressure Diastolic blood pressure Provider Name and Address Organization Details Last Updated DateTime 4 157.48 cm 30.7 kg/m2 96523.5 2 g 98.1 [degF] 67 /min 97 % 97 % 16 /min 102 mm[Hg] 78 mm[Hg] Marisol Correa RN [facility] [employer] [facility] 4 14:10:17 Date Recorded Body height Body mass index (BMI) Body weight Body temperature Heart rate Oxygen saturation Oxygen saturation in Arterial blood by Pulse oximetry Respiratory rate Systolic blood pressure Diastolic blood pressure Provider Name and Address Organization Details Last Updated DateTime 4 157.48 cm 30.5 kg/m2 66798.9 3 g 98.3 [degF] 61 /min 98 % 98 % 16 /min 100 mm[Hg] 80 mm[Hg] Marisol Correa RN [facility] [employer] [facility] 4 15:26:43 Date Recorded Body height Body mass index (BMI) Body weight Body temperature Heart rate Oxygen saturation Oxygen saturation in Arterial blood by Pulse oximetry Systolic blood pressure Diastolic blood pressure Provider Name and Address Organization Details Last Updated DateTime 5 157.48 cm 31.1 kg/m2 70675.3 4 g 98.8 [degF] 84 /min 95 % 95 % 120 mm[Hg] 68 mm[Hg] Laly Merchant CMA [facility] [employer] [facility] 5 14:13:58 Social History Question Answer Notes LastModified by Repunch ion Details LastModified Time Tobacco Smoking Status Never Smoker Not Available [facility] 01/10/2023 06:42:30 In The 14 Days Before Symptom Onset, Have You Had Close Contact With A Laboratory-confirm ed COVID-19 While That Case Was Ill? No [id number] Information not available 01/10/2023 In The 14 Days Before Symptom Onset, Have You Had Close Contact With A Person Who Is Under Investigation For COVID-19 While That Person Was Ill? No [id number] Information not available 01/10/2023 Have You Recently Traveled Abroad? No [id number] Information not available 01/10/2023 Sex: Unknown Functional Status None recorded. Mental Status None recorded. Family History Relationship Description Onset Age of this Age Resolved Age Notes LastModified by Organization Details LastModified Time Paternal Aunt Diabetes mellitus [id number] Not available 01/10/2023 06:42:39 Paternal Aunt Family history of malignant neoplasm [email or web address] Not available 05/01 14:00:28 Paternal Grandmother Diabetes mellitus [id number] Not available 01/10/2023 06:42:39 Paternal Uncle Diabetes mellitus [id number] Not available 01/10/2023 06:42:39 Maternal Aunt Family history of malignant neoplasm [email or web address] Not available 05/01 14:00:28 Medical History No medical history recorded. Gynecological HistoryNo gynecological history recorded. Obstetrics History GPAL:G 0 P 0 0 0 0 Past Encounters Encounter ID Performer Location Encounter Start Date Encounter Closed Date Diagnosis/Indication Diagnosis SNOMED-CT Code Diagnosis ICD10 Code Diagnosis Note [id number] [facility] [place] [address] [facility] [place] [address] 04/05/2021 00:00:00 04/05/2021 20:50:02 [id number] [facility] [place] [address] [facility] [place] [address] 06/24/2021 00:00:00 06/26/2021 10:20:12 [id number] [facility] [place] [address] [facility] [place] [address] 06/26/2022 00:00:00 06/27/2022 05:46:15 [id number] [facility] [place] [address] [facility] [place] [address] 07/06/2022 00:00:00 07/06/2022 19:22:31 [id number] [facility] [place] [address] [facility] [place] [address] 10/09/2022 00:00:00 10/09/2022 20:46:28 [id number] López Huddleston MD [facility] [place] [address] [place] [address] [place] [address] 01/11/2023 09:46:27 01/11/2023 10:17:29 Type 2 diabetes mellitus without complication 159267151 E11.9 A1C is 6.6% Continue current meds. Will start [email or web address]. [employer] card given [id number] López Huddleston MD [facility] [place] [address] [facility] [place] [address] 04/30/2023 08:57:08 04/30/2023 09:24:41 Type 2 diabetes mellitus without complication [id number] E11.9 A1C is 6.2% Continue current meds. Continue ozempic 0.5 mg daily. F/u in 3 monthsWill do BW at next visit [id number] López Huddleston MD [facility] [place] [address] [place] [address] 06/04/2023 12:23:03 06/04/2023 12:38:38 Low back pain [id number] M54.50 Use ibuprofen 800 mg TID Continue heat and analgesic rub and cyclobenza quiana [id number] López Huddleston MD [facility] [place] [address] [place] [address] [place] [address] 07/10/2023 14:54:17 07/10/2023 15:50:59 Adult health examination 428740300 Z00.00 Hyperlipidemia 04829434 E78.5 Screening for malignant neoplasm of breast 538776983 Z12.39 Chronic id iopathic constipation 25526545 K59.04 Use miralax as needed Ventral in cisional hernia 934036119 K43.2 It is small and nontender Reassuranc e given. [id number] López Huddleston MD [facility] [place] [address] [place] [address] 07/31/2023 15:38:02 07/31/2023 16:04:50 Type 2 diabetes mellitus without complication 033604242 E11.9 A1C is 6.1% Continue current meds. Continue ozempic 0.5 mg daily. F/u in 6 months [id number] ROBYN Ware [facility] [place] [address] [place] [address] 01/29/2024 14:54:10 01/29/2024 15:18:03 Type 2 diabetes mellitus without complication 152758882 E11.9 Anemia 226314690 D64.9 Essential hypertension 12568743 I10 Hyperlipidemia 50777076 E78.5 [id number] ROBYN Ware [facility] [place] [address] [facility] [place] [address] 05/01/2024 13:59:22 05/01/2024 14:29:09 Type 2 diabetes mellitus without complication 660170414 E11.9 Anemia 052189738 D64.9 Chronic id iopathic constipation 21158343 K59.04 Essential hypertension 14922071 I10 Hyperlipidemia 66595039 E78.5 [id number] ROBYN Ware [facility] [place] [address] [facility] [place] [address] 08/04/2024 15:09:11 08/04/2024 15:46:24 Bleeding from nipple 983187486 N64.59 left Essential hypertension 08741279 I10 Type 2 nhi betes mellitus without complication 806155584 E11.9 Anemia 045145184 D64.9 Chronic id iopathic constipation 48768660 K59.04 Hyperlipidemia 08158261 E78.5 Low back pain 064968054 M54.50 [id number] ROBYN Ware [address] [address] 12/09/2024 14:06:09 12/09/2024 14:52:52 Hyperlipidemia 94264533 E78.5 Type 2 nhi betes mellitus without complication 826359001 E11.9 Anemia 148351556 D64.9 Essential hypertension 40392439 I10 Low back pain 688746809 M54.50 Health Concerns Section Related Observation LastModified by Organization Detai ls LastModified Time None Recorded Concern Status LastModified by Organization Details LastModified Time None Recorded Advance Directives Directive None Recorded Payers Encounter Date Sequence Insurance Name Policy Number Policy Smith Covered Member ID Smith Member ID Guarantor Name 07/31/2023 1 [facility] [id number] Tri Parker [id number] Tri Parker 01/29/2024 1 [facility] [id number] Tri Parker [id number] Tri Parker 05/01/2024 1 [facility] [id number] Tri Parker [id number] Tri Parker 08/04/2024 1 [facility] [id number] Tri Parker [id number] Tri Parker 12/09/2024 1 [facility] [id number] Tri Irene Keith [id number] Tri Parker Notes Date Note Type Note Provider Name and Address Organization Details Recorded Time 07/31/2023 text/html Here for A1C check for DM2. No complaints or issues. Has a hernia on navel and does not bother her. No tingling or numbness of feet no calluses or sores. López Huddleston MD [address], [place], [address], [employer] 07/31/2023 19:09:25 01/29/2024 text/html no changes ROBYN Ware [address], [place], [address], [employer] 02/12/2024 23:22:19 05/01/2024 text/html no changes ROBYN Ware [address], [place], [address], [employer] 05/10/2024 22:23:34 08/04/2024 text/html bloody discharge left nipple more than right ROBYN Ware [address], [place], [address], [employer] 08/20/2024 16:38:48 12/09/2024 text/html no changes ROBYN Ware [address], [place], [address], [employer] 12/12/2024 20:05:29 OBGyn Episode No OBEpisode recorded.
--- OUTSIDE RECORDS SUMMARY | 2025-01-28 09:14 | XMS_ITS | Encounter Summary ---
Author Organization [facility] Address [address] [place] [address] Care Team Providers Care Relief Pharmacist Name Role Phone Unavailable Primary Care Provider Unavailabl e Reason for Visit * Diagnostic Imaging (Routine) - Pending Review Specialty Diagnoses / Procedures Referred By Gladys t Referred To Contact Procedures Breast Imaging Screening Outside Reference Rea Aburto MD PhD [address] [phone] [place] [address] Phone: tel: fax: Referral ID Status Reason Start Date Expiration Date V isits Requested Visits Authorized [id number] Pending Review 12/24/2024 01/23/2026 1 1 Encounter Details Date Type Department Care Team ([facility] st Contact Info) Description 04/19/2020 Hospital Encounter [facility] [address] [place] [address] [id number] Social History Tobacco Use Types Packs/Day Years Used Date Smoking Tobacco: Never Smokeless Tobacco: Never Comments Unknown Sex and Gender Information Value Date Recorded Sex Assigned at Not on file Legal Sex Female 8:42 PM DIRECTOR OF SOCIAL SERVICES Gender Identity Not on file Sexual Orientation Not on file documented as of this encounter Plan of Treatment Not on file documented as of this encounter Procedures Procedure Name Priority Date/Time Associated Diagnosis Comments BREAST IMAGING MG SCREENING OUTSIDE REFERENCE Routine 04/19/2020 12:00 AM CDT documented in this encounter Results * Breast Imaging Screening Outside Reference (04/19/2020 12:00 AM CDT) Impressions [facility] - 12/24/2024 6:07 PM DIRECTOR OF SOCIAL SERVICES These images are for Reference purposes only and have not been reviewed by [facility]. There will be no report generated by a [facility] Radiologist. 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
--- OUTSIDE RECORDS SUMMARY | 2025-01-28 09:14 | XMS_ITS | Clinical Summary ---
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
--- OUTSIDE RECORDS SUMMARY | 2025-01-28 09:14 | XMS_ITS | Encounter Summary ---
Author Organization [facility] Address [address] [place] [address] Care Team Providers Care Pediatric Dermatologist Name Role Phone Unavailable Primary Care Provider Unavailabl e Reason for Visit * Diagnostic Imaging (Routine) - Pending Review Specialty Diagnoses / Procedures Referred By Conttrent t Referred To Contact Procedures Breast Imaging Screening Outside Reference Rea Aburto MD PhD [address] [phone] [place] [address] Phone: tel: fax: Referral ID Status Reason Start Date Expiration Date V isits Requested Visits Authorized [id number] Pending Review 12/24/2024 01/23/2026 1 1 Encounter Details Date Type Department Care Team ([facility] st Contact Info) Description 03/25/2015 Hospital Encounter [facility] [address] [place] [id number] Social History Tobacco Use Types Packs/Day Years Used Date Smoking Tobacco: Never Smokeless Tobacco: Never Comments Unknown Sex and Gender Information Value Date Recorded Sex Assigned at Not on file Legal Sex Female 8:42 PM PEARL MAKER Gender Identity Not on file Sexual Orientation Not on file documented as of this encounter Plan of Treatment Not on file documented as of this encounter Procedures Procedure Name Priority Date/Time Associated Diagnosis Comments BREAST IMAGING MG SCREENING OUTSIDE REFERENCE Routine 03/25/2015 12:00 AM CDT documented in this encounter Results * Breast Imaging Screening Outside Reference (03/25/2015 12:00 AM CDT) Impressions [facility] - 12/24/2024 6:07 PM PEARL MAKER These images are for Reference purposes only and have not been reviewed by [facility]. There will be no report generated by a [facility] Radiologist. 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
--- OUTSIDE RECORDS SUMMARY | 2025-01-28 09:15 | XMS_ITS | Clinical Summary ---
Author Organization [facility] [place] Address [address] [place] [address] Care Team Providers Care Rehabilitation Manager Name Role Phone Unavailable Primary Care Provider Unavailabl e Source Comments [facility],non-owned Affiliates and Associated Physician Practices is amultiple site organization consisting of ambulatory clinics and hospital sitesin [place], [place], [place] and [place]. This disclosure is being madepursuant to the Care Everywhere program and may not contain all information available regarding this patient. Last updated 18.[facility] Allergies No known active allergies Medications * Be aware that medications may not be up to date on this document. Alwaysverify current medications with the patient. Medication Sig Dispensed Refills Start Date End Date Status LISINOPRIL PO Active ATORVASTATIN CALCIUM PO Active PHENTERMINE HCL PO Active benzonatate (TESSALON) 200 MG capsuleIndications:[place] bronchitis, unspecified organism Take 1 capsule by mouth 3 times daily as needed for Cough 30 capsule 02/05/2019 Active albuterol HFA (PROVENTIL;VENTOLIN;P ROAIR) 108 (90 BASE) MCG/ACT inhalerIndications:[place] bronchitis, unspecified organism Inhale 2 puffs by mouth every 4 hours as needed 1 Inhaler 02/05/2019 Active Encounters Date Type Department Care Team Description 12/04/2024 4:21 PM AIRCRAFT TOOL MAKER - 12/04/2024 11:59 PM AIRCRAFT TOOL MAKER Hospital Encounter [facility] [address] [place] [id number] Marcos Velasco MD Discharge Disposition: Home or Self Care 12/04/2024 1:34 PM AIRCRAFT TOOL MAKER - 12/04/2024 4:20 PM AIRCRAFT TOOL MAKER Hospital Encounter [facility] [address] [place] [address] Marcos Velasco MD Discharge Disposition: Home or Self Care 12/04/2024 1:33 PM AIRCRAFT TOOL MAKER Hospital Encounter [facility] [address] [place] [address] Marcos Velasco MD Discharge Disposition: Home or [...] 66 08/01/2019 12:44 PM CDT Temperature 36.7 C (98.1 F) 08/01/2019 12:44 PM CDT Respiratory Rate 19 08/01/2019 12:44 PM CDT Oxygen Saturation 95% 08/01/2019 12:44 PM CDT Inhaled Oxygen Concentration - - Weight 78.5 kg (173 lb) 08/01/2019 12:44 PM CDT Height 157.5 cm (5' 2 ) 08/01/2019 12:44 PM CDT Body Mass Index 31.64 08/01/2019 12:44 PM CDT Plan of Treatment Health Maintenance Due Date Last Done Comments COLON MONITORING 1971 COLONOSCOPY - COLON CA SCREENING 1971 CT COLONOGRAPHY - COLON CA SCREENING 1971 FIT - COLON CA SCREENING 1971 [...] VACCINE (1 of 2) 2021 COVID-19 VACCINE ( - 2023-2 5 season) 2024 INFLUENZA VACCINE (#1) 2024 DEPRESSION SCREENING 11/12/2024 COLOGUARD (AGES 45-75) - COL ON CA SCREENING 07/03/2025 07/03/2022 Colorectal Cancer Screening 07/03/2025 HIB VACCINE Aged Out No longer eligi ble based on patient's age to complete this topic HPV VACCINE Aged Out No longer eligi ble based on patient's age to complete this topic MENINGOCOCCAL (Group B) VACC INE SHARED DECISION-MAKING Aged Out No longer eligibl e based on patient's age to complete this topic MENINGOCOCCAL GROUPS A/C/Y/W VACCINE Aged Out No longer eligible b ased on patient's age to complete this topic Procedures Procedure Name Priority Date/Time Associated Diagnosis Comments US OUTSIDE CONSULTATION Routine 12/04/2024 1:34 PM AIRCRAFT TOOL MAKER Abnormal mammogram MAMMO OUTSIDE CONSULTATION Routine 12/04/2024 1:33 PM AIRCRAFT TOOL MAKER Abnormal mammogram from Last 3 Months Results * US Outside Consultation (12/04/2024 1:34 PM AIRCRAFT TOOL MAKER) Anatomical Region Laterality Modality Mammography 12/17/2024 7:32 AM AIRCRAFT TOOL MAKER Impressions 12/17/2024 10:37 AM AIRCRAFT TOOL MAKER IMPRESSION: 1. A possible focal asymmetry is questioned in the outer central left breast. Additional diagnostic imaging is recommended at this time. 2. Please note, spot compression tomosynthesis images of the left retroareolar breast are not available at the time of this dictation. Given patient's left nipple discharge, diagnostic imaging is recommended of the left retroareolar breast. 3. A 0.9 cm mass was noted on ultrasound at 9:00 2 cm from the nipple in the left breast. This likely corresponds to the benign mass in the inner central left breast that has appeared to be mammographically stable since 07/04/2021. Repeat ultrasound evaluation is recommended to evaluate margins of the mass as the outside images have a limited technique. 4. A cortically thickened left axillary lymph node measuring 0.4 cm is noted on outside ultrasound. Sonographic evaluation is recommended to reevaluate this finding. 5. Please note the breast MRI cannot be evaluated given limited images available at the time of this dictation. 6. Negative, no mammographic evidence of malignancy in the right breast. RECOMMENDATION: Follow-up diagnostic left mammogram and ultrasound at this time as above. Patient will receive her results from our nurse coordinator, Jasmyn Ledezma RN. OVERALL ASSESSMENT: BI-RADS CATEGORY 0: INCOMPLETE: NEED ADDITIONAL IMAGING EVALUATION. Note: The findings, conclusions and recommendations within this report do not replace the initial findings, conclusions and recommendations made at the facility where the study was performed, based upon the imaging and clinical condition at that time, and comparison with the prior report and clinical history is necessary. The provided images may or may not represent the [place] source data set and thus may contain changes, which may lower the sensitivity in the second opinion interpretation. IDaphne MD have personally reviewed and interpreted this examination/study. > Interpreting Provider: Daphne Mcmahon MD on 12/17/2024 10:37 AM Narrative 12/17/2024 10:37 AM AIRCRAFT TOOL MAKER EXAMINATION: RADIOLOGY CONSULTATION ON OUTSIDE IMAGING STUDIES LOCATION WHERE CONSULTATION PERFORMED: [facility] DATE OF CONSULTATION: 12/17/2024 REASON FOR CONSULTATION / HISTORY: 54-year-old female presents as an outside consultation for workup of left nipple discharge. OUTSIDE STUDIES FOR REVIEW: Bilateral diagnostic mammogram and left breast ultrasound both dated 09/10/2024. Please note, breast MRI images from [facility] dated 10/31/2020 are incomplete at the time of this dictation. The outside final report was provided at the time of this second opinion. FACILITY WHERE STUDY PERFORMED: [facility] COMPARISON: Prior study dated 07/30/2023 FINDINGS: Diagnostic bilateral mammogram dated 09/10/2024: Bilateral craniocaudal and mediolateral oblique projections obtained. A left true lateral and both left rolled craniocaudal and mediolateral oblique spot compression views were also obtained. A total of 7 images were obtained. Breast parenchymal composition: Category B: There are scattered areas of fibroglandular density. Findings: Right breast: No suspicious findings or evidence of malignancy. Left breast: A possible focal asymmetry is questioned in the outer central breast at mid to posterior depth. Redemonstrated is a benign mass in the inner central breast at anterior depth, unchanged from 07/04/2021. Left breast ultrasound dated 09/10/2024: Targeted ultrasound of the retroareolar breast shows no sonographic abnormality. Targeted ultrasound at 9:00 2 cm from the nipple shows a 0.9 x 0.9 x 0.5 cm mass. Margins of this mass are not well characterized given limited technique. This finding likely corresponds to the benign mass in the inner central breast mentioned above. Targeted ultrasound of the axilla shows a lymph node with mildly thickened cortex measuring up to 0.4 cm. Bilateral contrast breast MRI scan dated 10/31/2024: Please note the breast MRI cannot be evaluated given limited images available at the time of this dictation. Marcos Velasco MD US ORDERABLES * Mammo Outside Consultation (12/04/2024 1:33 PM AIRCRAFT TOOL MAKER) Anatomical Region Laterality Modality Mammography 12/17/2024 7:32 AM AIRCRAFT TOOL MAKER Impressions 12/17/2024 10:37 AM AIRCRAFT TOOL MAKER IMPRESSION: 1. A possible focal asymmetry is questioned in the outer central left breast. Additional diagnostic imaging is recommended at this time. 2. Please note, spot compression tomosynthesis images of the left retroareolar breast are not available at the time of this dictation. Given patient's left nipple discharge, diagnostic imaging is recommended of the left retroareolar breast. 3. A 0.9 cm mass was noted on ultrasound at 9:00 2 cm from the nipple in the left breast. This likely corresponds to the benign mass in the inner central left breast that has appeared to be mammographically stable since 07/04/2021. Repeat ultrasound evaluation is recommended to evaluate margins of the mass as the outside images have a limited technique. 4. A cortically thickened left axillary lymph node measuring 0.4 cm is noted on outside ultrasound. Sonographic evaluation is recommended to reevaluate this finding. 5. Please note the breast MRI cannot be evaluated given limited images available at the time of this dictation. 6. Negative, no mammographic evidence of malignancy in the right breast. RECOMMENDATION: Follow-up diagnostic left mammogram and ultrasound at this time as above. Patient will receive her results from our nurse coordinator, Jasmyn Ledezma RN. OVERALL ASSESSMENT: BI-RADS CATEGORY 0: INCOMPLETE: NEED ADDITIONAL IMAGING EVALUATION. Note: The findings, conclusions and recommendations within this report do not replace the initial findings, conclusions and recommendations made at the facility where the study was performed, based upon the imaging and clinical condition at that time, and comparison with the prior report and clinical history is necessary. The provided images may or may not represent the [place] source data set and thus may contain changes, which may lower the sensitivity in the second opinion interpretation. Daphne Mejía MD have personally reviewed and interpreted this examination/study. > Interpreting Provider: Daphne Mcmahon MD on 12/17/2024 10:37 AM Narrative 12/17/2024 10:37 AM AIRCRAFT TOOL MAKER EXAMINATION: RADIOLOGY CONSULTATION ON OUTSIDE IMAGING STUDIES LOCATION WHERE CONSULTATION PERFORMED: [facility] DATE OF CONSULTATION: 12/17/2024 REASON FOR CONSULTATION / HISTORY: 54-year-old female presents as an outside consultation for workup of left nipple discharge. OUTSIDE STUDIES FOR REVIEW: Bilateral diagnostic mammogram and left breast ultrasound both dated 09/10/2024. Please note, breast MRI images from [facility] dated 10/31/2020 are incomplete at the time of this dictation. The outside final report was provided at the time of this second opinion. FACILITY WHERE STUDY PERFORMED: [facility] COMPARISON: Prior study dated 07/30/2023 FINDINGS: Diagnostic bilateral mammogram dated 09/10/2024: Bilateral craniocaudal and mediolateral oblique projections obtained. A left true lateral and both left rolled craniocaudal and mediolateral oblique spot compression views were also obtained. A total of 7 images were obtained. Breast parenchymal composition: Category B: There are scattered areas of fibroglandular density. Findings: Right breast: No suspicious findings or evidence of malignancy. Left breast: A possible focal asymmetry is questioned in the outer central breast at mid to posterior depth. Redemonstrated is a benign mass in the inner central breast at anterior depth, unchanged from 07/04/2021. Left breast ultrasound dated 09/10/2024: Targeted ultrasound of the retroareolar breast shows no sonographic abnormality. Targeted ultrasound at 9:00 2 cm from the nipple shows a 0.9 x 0.9 x 0.5 cm mass. Margins of this mass are not well characterized given limited technique. This finding likely corresponds to the benign mass in the inner central breast mentioned above. Targeted ultrasound of the axilla shows a lymph node with mildly thickened cortex measuring up to 0.4 cm. Bilateral contrast breast MRI scan dated 10/31/2024: Please note the breast MRI cannot be evaluated given limited images available at the time of this dictation. Marcos Velasco MD MAMMO ORDERABLES from Last 3 Months
--- OUTSIDE RECORDS SUMMARY | 2025-01-28 09:15 | XMS_ITS | Clinical Summary ---
Author Organization [address] Address [address] [place] [phone] Care Team Providers Care Healthcare Administrative Assistant Name Role Phone Marcos Velasco MD Unavailable [phone] Jna Wellington Primary Care Provider + Allergies No known active allergies Medications atorvastatin (LIPITOR) 20 mg tablet Take 1 tablet (20 mg total) by mouth daily Active losartan-hydro CHLOROthiazide (HYZAAR) 50-12.5 mg per tablet Take 1 tablet by mouth daily 5 Active metFORMIN XR (GLUCOPHAGE XR) 500 mg 24 hr tablet Take 1 tablet (500 mg total) by mouth daily Active semaglutide (Ozempic) 1 mg/dose (4 mg/3 mL) pen injector injection INJECT 1mg SUBCUTANEOUSLY EVERY WEEK 4 Active Active Problems Problem Noted Date Diagnosed Date 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 Surgery [facility] Floor [address] [place] [address] Rea Aburto MD PhD 01/06/2025 12:36 PM FINANCIAL AIDS OFFICER - 01/06/2025 11:59 PM FINANCIAL AIDS OFFICER Hospital Encounter [facility] Imaging and Radiology [address] [place] [address] Rea Aburto MD PhD Abnormal mammogram of left breast Discharge Disposition: Discharge to home or self care 01/06/2025 12:35 PM FINANCIAL AIDS OFFICER - 01/06/2025 11:59 PM FINANCIAL AIDS OFFICER Hospital Encounter [facility] ` [address] [place] [address] Abnormal mammogram of left breast Discharge Disposition: Discharge to home or self care 01/06/2025 11:27 AM FINANCIAL AIDS OFFICER - 01/06/2025 11:59 PM FINANCIAL AIDS OFFICER Hospital Encounter [facility] ` [address] [place] [address] Abnormal mammogram; Bloody discharge from left nipple Discharge Disposition: Discharge to home or self care 01/06/2025 9:00 AM FINANCIAL AIDS OFFICER Office Visit [facility] Surgery [address] [place] [phone] Rea Aburto MD PhD Mass of left breast, unspecified quadrant 12/24/2024 6:32 PM FINANCIAL AIDS OFFICER - 12/24/2024 11:59 PM FINANCIAL AIDS OFFICER Hospital Encounter [facility] [address] [place] [phone] Discharge Disposition: Discharge to home or self care 12/19/2024 Orders Only [facility] Surgery [address] [place] [phone] Rea Aburto MD PhD 12/17/2024 Telephone [facility] [address] [place] [phone] Nikki Muse, RN FOLLOW UP ON REFERRAL 12/15/2024 Orders Only [facility] Surgery [address] [phone] Rea Aburto MD PhD 12/05/2024 Telephone [facility] Surgery [address] [place] [phone] Rea Aburto MD PhD 12/03/2024 Orders Only [facility] Surgery [address] [place] [phone] Rea Aburto MD PhD Abnormal mammogram (Primary Dx); Bloody discharge from left nipple 12/03/2024 Telephone [facility] Surgery [facility] [address] [place] [address] Rea Aburto MD PhD Medical Question/Miscellane ous 12/02/2024 Telephone [facility] Surgery [address] [facility] 8 [place] [phone] Rea Aburto MD PhD 11/26/2024 1:35 PM FINANCIAL AIDS OFFICER Ancillary Procedure [facility] 11/26/2024 1:05 PM FINANCIAL AIDS OFFICER Ancillary Procedure [facility] 10/31/2024 2:10 PM FINANCIAL AIDS OFFICER Ancillary Procedure [facility] 10/31/2024 - 10/31/2024 11:59 PM FINANCIAL AIDS OFFICER Hospital Encounter [facility] Radiology [facility] ([facility]) [address] [place] [phone] Discharge Disposition: Discharge to home or self care from Last 3 Months Surgical History Surgery Date Site/Laterality Comments SPLENECTOMY Splenectomy - (Added by TW Conv) COLOSTOMY Colostomy - (Added by TW Conv) INGUINAL HERNIA REPAIR Inguinal Hernia Repair - (Added by TW Conv) OVARIAN CYSTECTOMY Ovarian Cystectomy - (Added by TW Conv) TOTAL ABDOMINAL HYSTERECTOMY Total Abdominal Hysterectomy With Removal Of Both Ovaries - (Added by Conv) BREAST BIOPSY 01/06/2025 Left REVISION / TAKEDOWN COLOSTOMY N/A VENTRAL HERNIA REPAIR 11/12/2019 - 11/11/2020 N/A OPEN REDUCTION INTERNAL FIXATION 11/12/2012 - 11/11/2013 Left Broken leg Medical History Medical History Date Comments Personal history of diseases of the blood and blood-forming organs and certain disorders involving the immune mechanism History of an emia - (Added by TW Conv) High blood pressure Diabetes (HCC) EKG abnormality Family History Medical History Relation Name Comments Lung cancer Father's Brother 1 Lung cancer Father's Brother 2 Lung cancer Father's Sister Relation Name Status Comments Father's Brother 1 Father's Brother 2 Father's Sister Social History Tobacco Use Types Packs/Day Years Used Date Smoking Tobacco: Never Smokeless Tobacco: Never Tobacco Cessation:Counseling Given: Not Answered Comments Unknown Sex and Gender Information Value Date Recorded Sex Assigned at Not on file Legal Sex Female 8:42 PM FINANCIAL AIDS OFFICER Gender Identity Not on file Sexual Orientation Not on file Obstetrics History Last Filed Vital Signs Vital Sign Reading Time Taken Comments Blood Pressure 105/71 01/06/2025 3:53 PM FINANCIAL AIDS OFFICER Pulse 92 01/06/2025 3:53 PM FINANCIAL AIDS OFFICER Temperature 36.8 C (98.2 F) 01/06/2025 3:53 PM FINANCIAL AIDS OFFICER Respiratory Rate 18 01/06/2025 3:53 PM FINANCIAL AIDS OFFICER Oxygen Saturation 95% 01/06/2025 3:53 PM FINANCIAL AIDS OFFICER Inhaled Oxygen Concentration - - Weight 76 kg (167 lb 9.6 oz) 01/06/2025 3:49 PM FINANCIAL AIDS OFFICER Height 156.2 cm (5' 1.5 ) 01/06/2025 3:49 PM FINANCIAL AIDS OFFICER Body Mass Index 31.15 01/06/2025 3:49 PM FINANCIAL AIDS OFFICER Plan of Treatment Health Maintenance Due Date Last Done Comments Colon Cancer Screening-Colonoscopy 1970 Depression Screening 1971 Hepatitis C Screening 1971 DTaP/Tdap/Td Vaccine (1 - Tdap) 1982 Hepatitis B Screening 1989 Regular Well Visit/Exam 18-64 1989 Zoster Vaccine (2 of 2) 04/25/2023 02/28/2023 Influenza Vaccine (#1) 2024 Breast Cancer Screening-Mammogram 07/30/2024 023 Pneumococcal vaccine <65 Aged Out No longer eligible based on patient's age to complete this topic Medical Devices Implanted Type Area Raw Shellfish Preparer Device Identifier Shelf Expiration Date Model / Serial / Lot Bard Peripheral Vascular Ultraclip Bard 17ga 10cm 2 Trigger Permanent Ultrasound [id number] - [id number] Implanted:Qty: 1 on 01/06/2025 at [facility] Clip Left: Breast Bard Peripheral Vascular [id number] 06/08/2027 [id number] / / [id number] Procedures Procedure Name Priority Date/Time Associated Diagnosis Comments SURGICAL PATHOLOGY Routine 01/06/2025 3: 46 PM FINANCIAL AIDS OFFICER Abnormal mammogram of left breast ARMANDO POST CLIP PLACEMENT LEFT Schedule Routine, Read Routine (OP Routine) 01/06/2025 3:09 PM FINANCIAL AIDS OFFICER Abnormal mammogram of left breast US GUIDED BREAST BIOPSY LEFT Schedule Routine, Read Routine (OP Routine) 01/06/2025 2:56 PM FINANCIAL AIDS OFFICER Abnormal mammogram of left breast US BREAST LEFT LIMITED Schedule Routine, Read Routine (OP Routine) 01/06/2025 12:45 PM FINANCIAL AIDS OFFICER Abnormal mammogram Bloody discharge from left nipple BREAST IMAGING MG DIAGNOSTIC OUTSIDE CONSULT Routine 12/24/2024 6:33 PM FINANCIAL AIDS OFFICER BREAST IMAGING US OUTSIDE REFERENCE Routine 11/26/2024 1:35 PM FINANCIAL AIDS OFFICER BREAST IMAGING MG DIAGNOSTIC OUTSIDE REFERENCE Routine 11/26/2024 1:05 PM FINANCIAL AIDS OFFICER BREAST MRI OUTSIDE REFERENCE Routine 10/31/2024 2:10 PM FINANCIAL AIDS OFFICER BREAST MRI OUTSIDE REFERENCE Routine 10/31/2024 12:00 AM FINANCIAL AIDS OFFICER from Last 3 Months Results * Surgical pathology (01/06/2025 3:46 PM FINANCIAL AIDS OFFICER) Tissue (Breast biopsy, needle core) 01/06/2025 2:51 PM FINANCIAL AIDS OFFICER Narrative PATHOLOGY CH - 01/08/2025 12:33 PM FINANCIAL AIDS OFFICER EPIC results best viewed via link to PDF [facility] Department of Pathology [address] [place] [address] Note to Patients: This report may contain a detailed description of human tissue sent by a health care provider to the laboratory for pathologic evaluation. The content of this report is essential for diagnosis and may provide important critical findings. This information may be unfamiliar to patients to review without a medical professional present. It is advised that the patient review this report in the presence of a health care provider who can answer questions and explain the details. Final Report Patient Name: JESSICA PARKER Address: [address] [place] [address] Gender: F : 1970 (Age: 54) Service: Location: N : [id number] [facility] #: [id number] Patient Type: Ancillary Taken: 01/06/2025 Received: 01/06/2025 Accessioned: 01/06/2025 Reported: 01/08/2025 Physician(s):Rufina Araiza M.D. Edward C. Anderson, P.A. Diagnosis: Breast, left biopsy: - Atypical ductal hyperplasia (ADH) (see microscopic description) - Dilated ducts and areas suggestive of fragmented sclerosed intraductal papilloma Mingo Horne M.D. Report Electronically Reviewed and Signed Out By Mingo Horne M.D. 01/08/2025 12:33:12 Specimen(s) Received: A: Left bloody nipple discharge, abnormakl ducts with intraductal mass, birads 4b Microscopic Description: Microscopic examination substantiates the above diagnosis. Deeper levels were performed and examined. 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 Appropriately controlled immunohistochemical stains were performed. CK 5/6 is lost in the area of atypia and ER shows strong homogeneous positivity, supporting the findings of atypical ductal hyperplasia (ADH). Clinical and radiologic correlation is recommended. Clinical History: Abnormal mammogram of left breast Gross Description: The specimen is submitted in a single formalin filled container labeled JESSICA PARKER and left bloody nipple discharge abnormal ducts . It is 4 cores of fibrofatty tissue between 0.2 and 0.9 cm. All in one cassette. Removed from patient on 01/06/2025 at 14:30 o'clock and placed in formalin at 14:51 o'clock, removed from formalin 20:50 o'clock. Formalin fixation times are in compliance with ASCO/CAP guidelines. Eduarda Espinoza R.N., P.A./Sherice Schmitz M.D. REPORT IMAGES AND SCANNED DOCUMENTS, IF INCLUDED, ONLY VIEWABLE IN PDF VERSION OF REPORT The performance characteristics of some immunohistochemical stains, fluorescence in-situ hybridization tests and immunophenotyping by flow cytometry cited in this report (if any) were determined by the Surgical Pathology Department at [facility] as part of an ongoing air quality specialist program and in compliance with federally mandated regulations drawn from the Clinical Laboratory Improvement Act of 1988 (CLIA '88). Some of these tests rely on the use of analyte specific reagents and are subject to specific labeling requirements by the US Food and Drug Administration. Such diagnostic tests may only be performed in a facility that is certified by the Department of Health and Human Services as a high complexity laboratory under CLIA '88. The FDA has determined that such clearance or approval is not necessary. This test is used for clinical purposes. It should not be regarded as investigational or for research. Nevertheless, federal rules concerning the medical use of analyte specific reagents require that the following disclaimer be attached to the report: This test was developed and its performance characteristics determined by the Surgical Pathology Department [facility]. It has not been cleared or approved by the U. S. Food and Drug Administration. Note for decalcified specimens: This assay has not been validated on decalcified tissues. Results should be interpreted with caution given the possibility of false negativity on decalcified specimens us Rea Aburto MD PhD LAB PATHO LOGY ORDERABLES Final Result PATHOLOGY [address] [place] [address] * Armando Post Clip Placement Left (01/06/2025 3:09 PM FINANCIAL AIDS OFFICER) Anatomical Region Laterality Modality Breast Left Mammography 01/06/2025 3:12 PM FINANCIAL AIDS OFFICER Addenda Addendum by Mary Borges MD on 01/08/2025 1:48 PM FINANCIAL AIDS OFFICER ADDENDUM: Pathology from biopsy of the left breast showed atypical ductal hyperplasia bordering on low-grade DCIS. Dilated ducts an area suggestive of fragmented sclerosing intraductal papilloma; please refer to pathology report for details. The pathology results have a high potential risk of upgrade to malignancy, and are radiology/pathology concordant. Surgical excision is recommended. Given the extent of the abnormally dilated ducts that are seen on imaging and given that the outside MRI was very limited with no subtraction images provided for interpretation a repeat dedicated diagnostic breast MRI is strongly recommended to evaluate true extent of disease and if clinically indicated to potentially aid in targeting an additional area for biopsy for pathologic confirmation of the extent of disease for optimal surgical planning. Results and recommendations will be discussed with the patient by [facility] or referring provider staff and will be separately documented in the medical record. Electronically signed by: MARY BORGES MD Impressions 01/06/2025 3:12 PM FINANCIAL AIDS OFFICER Successful core needle biopsy of the LEFT breast. Pathology is pending. ASSESSMENT: Post Procedure Mammograms for Marker Placement Electronically signed by: MARY BORGES MD Narrative 01/06/2025 3:12 PM FINANCIAL AIDS OFFICER EXAMINATION: LEFT BREAST CORE BIOPSY UTILIZING SONOGRAPHIC GUIDANCE, PLACEMENT OF A BIOPSY TISSUE MARKER CLIP, AND LEFT FULL FIELD DIGITAL MAMMOGRAM WITH DIGITAL BREAST TOMOSYNTHESIS HISTORY: Abnormal breast imaging. Abnormally dilated ducts 3:00, 9 cm from the nipple Ultrasound guided core needle biopsy is requested to evaluate for malignancy. COMPARISON: Same day ultrasound as well as outside ultrasound imaging from 11/26/2024. Correlation made with outside MRI from 10/31/2024 BREAST PARENCHYMAL COMPOSITION: There are scattered areas of fibroglandular density. PROCEDURE AND FINDINGS: The risks and potential benefits of the procedures were discussed with the patient and written informed consent was obtained. After sterile preparation of the skin, 1% lidocaine and 2% lidocaine with epinephrine were utilized for local anesthesia. A small skin incision was made with a #11 scalpel blade. A 14G vacuum-assisted biopsy needle was then advanced through the skin incision to the edge of the lesion of interest at the left breast 3:00 from a lateral approach utilizing sonographic guidance. A total of 4 tissue cores were obtained through the lesion. The entire abnormally dilated duct system appeared to collapse after taking the vacuum assisted cores. A lot of dark bloody fluid was also identified with the cores. This was the same color as the nipple discharge that was previously seen. Bessie tissue marker clip was then placed at the biopsy site. Hemostasis was achieved. Dermabond and an ice pack were applied. There was no evidence of significant immediate complication. The patient was given verbal as well as written post procedural instructions prior to release from the department. The tissue cores were submitted to surgical pathology in formalin for histologic analysis. A two-view LEFT digital mammogram, including digital breast tomosynthesis, obtained post procedure demonstrates that the tissue marker clip is in expected position. The attending radiologist, Dr. MARY BORGES MD, performed the procedure. Procedure Note Mary Borges MD - 01/06/2025 EXAMINATION: LEFT BREAST CORE BIOPSY UTILIZING SONOGRAPHIC GUIDANCE, PLACEMENT OF A BIOPSY TISSUE MARKER CLIP, AND LEFT FULL FIELD DIGITAL MAMMOGRAM WITH DIGITAL BREAST TOMOSYNTHESIS HISTORY: Abnormal breast imaging. Abnormally dilated ducts 3:00, 9 cm from the nipple Ultrasound guided core needle biopsy is requested to evaluate for malignancy. COMPARISON: Same day ultrasound as well as outside ultrasound imaging from 11/26/2024. Correlation made with outside MRI from 10/31/2024 BREAST PARENCHYMAL COMPOSITION: There are scattered areas of fibroglandular density. PROCEDURE AND FINDINGS: The risks and potential benefits of the procedures were discussed with the patient and written informed consent was obtained. After sterile preparation of the skin, 1% lidocaine and 2% lidocaine with epinephrine were utilized for local anesthesia. A small skin incision was made with a #11 scalpel blade. A 14G vacuum-assisted biopsy needle was then advanced through the skin incision to the edge of the lesion of interest at the left breast 3:00 from a lateral approach utilizing sonographic guidance. A total of 4 tissue cores were obtained through the lesion. The entire abnormally dilated duct system appeared to collapse after taking the vacuum assisted cores. A lot of dark bloody fluid was also identified with the cores. This was the same color as the nipple discharge that was previously seen. Bessie tissue marker clip was then placed at the biopsy site. Hemostasis was achieved. Dermabond and an ice pack were applied. There was no evidence of significant immediate complication. The patient was given verbal as well as written post procedural instructions prior to release from the department. The tissue cores were submitted to surgical pathology in formalin for histologic analysis. A two-view LEFT digital mammogram, including digital breast tomosynthesis, obtained post procedure demonstrates that the tissue marker clip is in expected position. The attending radiologist, Dr. MARY BORGES MD, performed the procedure. IMPRESSION: Successful core needle biopsy of the LEFT breast. Pathology is pending. ASSESSMENT: Post Procedure Mammograms for Marker Placement Electronically signed by: MARY BORGES MD Rea Aburto MD PhD IMG MAMMO PROCEDURES Edited Result - Final * US Guided Breast Biopsy Left (01/06/2025 2:56 PM FINANCIAL AIDS OFFICER) Anatomical Region Laterality Modality Breast Left Ultrasound 01/06/2025 3:12 PM FINANCIAL AIDS OFFICER Addenda Addendum by Mary Borges MD on 01/08/2025 1:48 PM FINANCIAL AIDS OFFICER ADDENDUM: Pathology from biopsy of the left breast showed atypical ductal hyperplasia bordering on low-grade DCIS. Dilated ducts an area suggestive of fragmented sclerosing intraductal papilloma; please refer to pathology report for details. The pathology results have a high potential risk of upgrade to malignancy, and are radiology/pathology concordant. Surgical excision is recommended. Given the extent of the abnormally dilated ducts that are seen on imaging and given that the outside MRI was very limited with no subtraction images provided for interpretation a repeat dedicated diagnostic breast MRI is strongly recommended to evaluate true extent of disease and if clinically indicated to potentially aid in targeting an additional area for biopsy for pathologic confirmation of the extent of disease for optimal surgical planning. Results and recommendations will be discussed with the patient by [facility] or referring provider staff and will be separately documented in the medical record. Electronically signed by: MARY BORGES MD Impressions 01/06/2025 3:12 PM FINANCIAL AIDS OFFICER Successful core needle biopsy of the LEFT breast. Pathology is pending. ASSESSMENT: Post Procedure Mammograms for Marker Placement Electronically signed by: MARY BORGES MD Narrative 01/06/2025 3:12 PM FINANCIAL AIDS OFFICER EXAMINATION: LEFT BREAST CORE BIOPSY UTILIZING SONOGRAPHIC GUIDANCE, PLACEMENT OF A BIOPSY TISSUE MARKER CLIP, AND LEFT FULL FIELD DIGITAL MAMMOGRAM WITH DIGITAL BREAST TOMOSYNTHESIS HISTORY: Abnormal breast imaging. Abnormally dilated ducts 3:00, 9 cm from the nipple Ultrasound guided core needle biopsy is requested to evaluate for malignancy. COMPARISON: Same day ultrasound as well as outside ultrasound imaging from 11/26/2024. Correlation made with outside MRI from 10/31/2024 BREAST PARENCHYMAL COMPOSITION: There are scattered areas of fibroglandular density. PROCEDURE AND FINDINGS: The risks and potential benefits of the procedures were discussed with the patient and written informed consent was obtained. After sterile preparation of the skin, 1% lidocaine and 2% lidocaine with epinephrine were utilized for local anesthesia. A small skin incision was made with a #11 scalpel blade. A 14G vacuum-assisted biopsy needle was then advanced through the skin incision to the edge of the lesion of interest at the left breast 3:00 from a lateral approach utilizing sonographic guidance. A total of 4 tissue cores were obtained through the lesion. The entire abnormally dilated duct system appeared to collapse after taking the vacuum assisted cores. A lot of dark bloody fluid was also identified with the cores. This was the same color as the nipple discharge that was previously seen. [place] tissue marker clip was then placed at the biopsy site. Hemostasis was achieved. Dermabond and an ice pack were applied. There was no evidence of significant immediate complication. The patient was given verbal as well as written post procedural instructions prior to release from the department. The tissue cores were submitted to surgical pathology in formalin for histologic analysis. A two-view LEFT digital mammogram, including digital breast tomosynthesis, obtained post procedure demonstrates that the tissue marker clip is in expected position. The attending radiologist, Dr. MARY BORGES MD, performed the procedure. us Rea Aburto MD PhD IMG MAMMO PROCEDURES Edited Result - Final * (ABNORMAL) US Breast Left Limited (01/06/2025 12:45 PM FINANCIAL AIDS OFFICER) Anatomical Region Laterality Modality Breast Left Ultrasound 01/06/2025 3:07 PM FINANCIAL AIDS OFFICER Impressions 01/06/2025 3:07 PM FINANCIAL AIDS OFFICER Abnormally dilated duct with either intraductal soft tissue or complex fluid identified extending from the nipple to 3:00 about 9 cm from the nipple. Ultrasound-guided biopsy of the most confluent areas at 3:00 9 cm from the nipple is recommended for further evaluation. Results and recommendations were discussed with the patient and all questions answered. Patient was scheduled for biopsy same day. OVERALL FINAL ASSESSMENT: SUSPICIOUS. BI-RADS Category 4B: Moderate suspicion for malignancy. RECOMMENDATION: Ultrasound-guided biopsy of left breast abnormal ducts. Electronically signed by: MARY BORGES MD Narrative 01/06/2025 3:07 PM FINANCIAL AIDS OFFICER EXAMINATION: LEFT BREAST ULTRASOUND HISTORY: 54-year-old female outside imaging consult dictated on 12/24/2024 describes an area of abnormal linear clumped and branching non-mass enhancement extending from the left nipple involving the central and lateral left breast on outside MRI. 2nd look ultrasound was recommended The patient complains of dark bloody nipple discharge from the left breast for the last 3-4 months. Patient was also seen to be having this nipple discharge during the ultrasound examination. COMPARISON: Outside MRI from 10/31/2024 and outside mammogram from 11/26/2024 TECHNIQUE: Directed ultrasound evaluation of the LEFT breast was performed. ULTRASOUND FINDINGS: Targeted ultrasound was obtained through the left breast demonstrating abnormally dilated duct extending from the nipple with the thickest abnormal ducts with confluent branch point identified at 3:00 about 9 cm from the nipple. This corresponds to the areas of abnormal segmental ductal non-mass enhancement that was described on the outside MRI. There is only very minimal subtle flow identified within these abnormally dilated ducts on color Doppler. This could represent intraductal mass versus complex debris. The patient had dark bloody nipple discharge during the ultrasound examination as well. This ductal system is dilated extending into the nipple with again a dilated duct identified with debris and fluid in the immediate retroareolar region as well corresponding to the MRI finding. us Rea Aburto MD PhD IMG MAMMO PROCEDURES Final Result * Breast Imaging DX Outside Consult (12/24/2024 6:33 PM FINANCIAL AIDS OFFICER) Anatomical Region Laterality Modality Breast N/A Mammography 12/25/2024 12:5 4 PM FINANCIAL AIDS OFFICER Impressions 12/25/2024 1:24 PM FINANCIAL AIDS OFFICER Abnormal linear clumped and branching non-mass enhancement extending from the left nipple posteriorly to involve the central and lateral left breast, which likely corresponds to segmental focal asymmetries and irregular branching structures in the left breast which has been slowly increasing over multiple prior mammograms. Recommend 2nd look ultrasound. If there is no sonographic correlate, stereotactic biopsy is recommended (with consideration for biopsy of the anterior and posterior aspects). No suspicious abnormality in the RIGHT breast The method of initial detection of finding was patient-reported clinical symptom (Pat). OVERALL FINAL ASSESSMENT: SUSPICIOUS. BI-RADS Category 4B: Moderate suspicion for malignancy. RECOMMENDATION: Targeted left outer breast ultrasound to find a correlate for ultrasound-guided biopsy. If no correlate is found stereotactic guided biopsy is recommended. NOTE: The findings, conclusions and recommendations within this report do not replace the initial findings, conclusions and recommendations made at the facility where the study was performed based upon the imaging and clinical condition at that time. Review of the prior report and correlation with the clinical history are necessary. The provided images may or may not represent the [place] source data set and thus may contain changes which may lower the sensitivity of the second opinion interpretation. Dictated by: Ricky Burgess D.O. The radiology attending physician has personally reviewed this study, and had reviewed and/or edited this written report and agrees with it. Electronically signed by: Nela Mcadams M.D. Narrative 12/25/2024 1:24 PM FINANCIAL AIDS OFFICER EXAMINATION: REVIEW AND INTERPRETATION OF OUTSIDE IMAGING FACILITY PERFORMING OUTSIDE IMAGING: [facility] EXAM(S) REVIEWED: 1. BILATERAL SCREENING MAMMOGRAM WITH TOMOSYNTHESIS, 11/26/2023 2. BILATERAL BREAST MRI WITH AND WITHOUT INTRAVENOUS CONTRAST, 10/31/2024 3. BILATERAL DIAGNOSTIC MAMMOGRAM WITH TOMOSYNTHESIS 09/10/2024 DATE OF INTERPRETATION: 10/24/2025 HISTORY: 54-year-old woman presents for interpretation of outside imaging with history of left-sided bloody nipple discharge. Outside imaging evaluation discovered multiple dilated ducts in the left breast and intraductal masses. COMPARISON: Multiple prior studies, most recently 11/26/2024 and dating back to 01/21/2014. BREAST PARENCHYMAL COMPOSITION: There are scattered areas of fibroglandular density. FINDINGS: Bilateral diagnostic mammogram 09/10/2024: Right: No suspicious mass, calcification or architectural distortion of the right breast. Left: There are multiple irregular branching structures and focal asymmetries is in a segmental distribution in the outer central LEFT breast which have been slowly increasing over multiple prior mammograms. Bilateral breast MRI 10/31/2024: Left: There is clumped linear branching non-mass enhancement and foci of enhancement which extends from the nipple posteriorly to involve the central to lateral left breast. This enhancement does not meet threshold for kinetics and measures approximately 11 cm AP by 7 cm transverse by 5.3 cm CC. Right: No abnormal enhancing mass or non-mass enhancement in the right breast. There is an incidental hepatic cyst. Bilateral diagnostic mammogram 11/26/2024 Left: There are multiple irregular branching structures and focal asymmetries is in a segmental distribution in the outer central LEFT breast which have been slowly increasing over multiple prior mammograms. Right: No suspicious mass, architectural distortion or calcifications of the right breast. Ultrasound 09/10/2024 reportedly demonstrated focally dilated ducts at 3 o'clock position left breast, 6 cm from nipple. No intraductal mass or other mass lesion identified. Procedure Note Nela Mcadams MD - 12/25/2024 EXAMINATION: REVIEW AND INTERPRETATION OF OUTSIDE IMAGING FACILITY PERFORMING OUTSIDE IMAGING: [facility] EXAM(S) REVIEWED: 1. BILATERAL SCREENING MAMMOGRAM WITH TOMOSYNTHESIS, 11/26/2023 2. BILATERAL BREAST MRI WITH AND WITHOUT INTRAVENOUS CONTRAST, 10/31/2024 3. BILATERAL DIAGNOSTIC MAMMOGRAM WITH TOMOSYNTHESIS 09/10/2024 DATE OF INTERPRETATION: 10/24/2025 HISTORY: 54-year-old woman presents for interpretation of outside imaging with history of left-sided bloody nipple discharge. Outside imaging evaluation discovered multiple dilated ducts in the left breast and intraductal masses. COMPARISON: Multiple prior studies, most recently 11/26/2024 and dating back to 01/21/2014. BREAST PARENCHYMAL COMPOSITION: There are scattered areas of fibroglandular density. FINDINGS: Bilateral diagnostic mammogram 09/10/2024: Right: No suspicious mass, calcification or architectural distortion of the right breast. Left: There are multiple irregular branching structures and focal asymmetries is in a segmental distribution in the outer central LEFT breast which have been slowly increasing over multiple prior mammograms. Bilateral breast MRI 10/31/2024: Left: There is clumped linear branching non-mass enhancement and foci of enhancement which extends from the nipple posteriorly to involve the central to lateral left breast. This enhancement does not meet threshold for kinetics and measures approximately 11 cm AP by 7 cm transverse by 5.3 cm CC. Right: No abnormal enhancing mass or non-mass enhancement in the right breast. There is an incidental hepatic cyst. Bilateral diagnostic mammogram 11/26/2024 Left: There are multiple irregular branching structures and focal asymmetries is in a segmental distribution in the outer central LEFT breast which have been slowly increasing over multiple prior mammograms. Right: No suspicious mass, architectural distortion or calcifications of the right breast. Ultrasound 09/10/2024 reportedly demonstrated focally dilated ducts at 3 o'clock position left breast, 6 cm from nipple. No intraductal mass or other mass lesion identified. IMPRESSION: Abnormal linear clumped and branching non-mass enhancement extending from the left nipple posteriorly to involve the central and lateral left breast, which likely corresponds to segmental focal asymmetries and irregular branching structures in the left breast which has been slowly increasing over multiple prior mammograms. Recommend 2nd look ultrasound. If there is no sonographic correlate, stereotactic biopsy is recommended (with consideration for biopsy of the anterior and posterior aspects). No suspicious abnormality in the RIGHT breast The method of initial detection of finding was patient-reported clinical symptom (Pat). OVERALL FINAL ASSESSMENT: SUSPICIOUS. BI-RADS Category 4B: Moderate suspicion for malignancy. RECOMMENDATION: Targeted left outer breast ultrasound to find a correlate for ultrasound-guided biopsy. If no correlate is found stereotactic guided biopsy is recommended. NOTE: The findings, conclusions and recommendations within this report do not replace the initial findings, conclusions and recommendations made at the facility where the study was performed based upon the imaging and clinical condition at that time. Review of the prior report and correlation with the clinical history are necessary. The provided images may or may not represent the [place] source data set and thus may contain changes which may lower the sensitivity of the second opinion interpretation. Dictated by: Ricky Burgess D.O. The radiology attending physician has personally reviewed this study, and had reviewed and/or edited this written report and agrees with it. Electronically signed by: Nela Mcadams M.D. us Rea Aburto MD PhD IMG MAMMO PROCEDURES Final Result * Breast Imaging US Outside Reference (11/26/2024 1:35 PM FINANCIAL AIDS OFFICER) Narrative RAD_PACS[facility] - 12/22/2024 2:58 PM FINANCIAL AIDS OFFICER This order has been auto-finalized and does not contain a result. us Provider Transcribed Order IMG MAMMO PROCEDURES Final Result Performing Organization Address [facility] de Phone Number [email or web address] * Breast Imaging Diagnostic Outside Reference (11/26/2024 1:05 PM FINANCIAL AIDS OFFICER) Narrative RAD_[facility] - 12/22/2024 2:58 PM FINANCIAL AIDS OFFICER This order has been auto-finalized and does not contain a result. us Provider Transcribed Order IMG MAMMO PROCEDURES Final Result Performing Organization Address [facility] Co de Phone Number [email or web address] * Breast MRI Outside Reference (10/31/2024 2:10 PM FINANCIAL AIDS OFFICER) Narrative [facility] - 12/22/2024 2:58 PM FINANCIAL AIDS OFFICER This order has been auto-finalized and does not contain a result. us Provider Transcribed Order IMG MAMMO PROCEDURES Final Result Performing Organization Address City/[facility]/ZIP Co de Phone Number [email or web address] * Breast MRI Outside Reference (10/31/2024 12:00 AM FINANCIAL AIDS OFFICER) Impressions RAD_MAMMO_[facility] - 12/24/2024 6:07 PM FINANCIAL AIDS OFFICER These images are for Reference purposes only and have not been reviewed by [facility] Radiology. There will be no report generated by a [facility] Radiologist. Narrative RAD_MAMMO[facility] - 12/24/2024 6:07 PM FINANCIAL AIDS OFFICER EXAMINATION: Images For Reference Purposes Only us Rea Aburto MD PhD IMG MAMMO PROCEDURES Final Result [facility] from Last 3 Months Insurance [facility] [employer] [facility] H[facility]/PPO Address: [facility] [address] [place] [address] [place] [address] [facility] [employer] [facility]/PPO Address: [place] [address] Care Teams Healthcare Administrative Assistant Relationship Specialty Start Date End Date Jan Wellington PA [address] [place] [address] PCP - General Internal Medicine 11/26/24 Marcos Velasco MD [address] [place] [address] Referring Physician Obstetrics and Gynecology 11/26/24
--- OUTSIDE RECORDS SUMMARY | 2025-01-28 09:15 | XMS_ITS | Referral Summary ---
Author Organization [address] Address [address] [place] [phone] Care Team Providers Care Public Health Educator Name Role Phone Marcos Velasco MD Unavailable [phone] Jan Wellington Primary Care Provider + Encounters Date Type Department Care Team Description 01/08/2025 Results Follow-Up [facility] Surgery [address] [place] [address] Floor 8 [place] [address] Rea Aburto MD PhD 01/06/2025 9:00 AM WIRE WINDING MACHINE OPERATOR Office Visit [facility] Surgery [address] [place] [phone] Rea Aburto MD PhD Mass of left breast, unspecified quadrant 01/06/2025 12:36 PM WIRE WINDING MACHINE OPERATOR - 01/06/2025 11:59 PM WIRE WINDING MACHINE OPERATOR Hospital Encounter [facility] [address] [place] [id number] Rea Aburto MD PhD Abnormal mammogram of left breast Discharge Disposition: Discharge to home or self care 01/06/2025 12:35 PM WIRE WINDING MACHINE OPERATOR - 01/06/2025 11:59 PM WIRE WINDING MACHINE OPERATOR Hospital Encounter [address] [phone] Abnormal mammogram of left breast Discharge Disposition: Discharge to home or self care 01/06/2025 11:27 AM WIRE WINDING MACHINE OPERATOR - 01/06/2025 11:59 PM WIRE WINDING MACHINE OPERATOR Hospital Encounter [address] [place] [address] Abnormal mammogram; Bloody discharge from left nipple Discharge Disposition: Discharge to home or self care 12/24/2024 6:32 PM WIRE WINDING MACHINE OPERATOR - 12/24/2024 11:59 PM WIRE WINDING MACHINE OPERATOR Hospital Encounter [facility] [address] [place] [address] Discharge Disposition: Discharge to home or self care 12/19/2024 Orders Only [facility] Surgery [address] [place] [phone] Rea Aburto MD PhD 12/17/[address] [phone] Nikki Muse RN FOLLOW UP ON REFERRAL 12/15/2024 Orders Only [facility] Surgery [address] [place] [phone] Rea Aburto MD PhD 12/05/2024 Telephone [facility] Surgery [address] [place] [phone] Rea Aburto MD PhD 12/03/2024 Orders Only [facility] Surgery [address] [place] [phone] Rea Aburto MD PhD Abnormal mammogram (Primary Dx); Bloody discharge from left nipple 12/03/2024 Telephone [facility] Surgery [address] [place] [phone] Rea Aburto MD PhD Medical Question/Miscellane ous 12/02/2024 Telephone [facility] Surgery [address] [place] [phone] Rea Aburto MD PhD 11/26/2024 1:05 PM WIRE WINDING MACHINE OPERATOR Ancillary Procedure [facility] 11/26/2024 1:35 PM WIRE WINDING MACHINE OPERATOR Ancillary Procedure [facility] 10/31/2024 - 10/31/2024 11:59 PM WIRE WINDING MACHINE OPERATOR Hospital Encounter [facility] [address] [place] [address] Discharge Disposition: Discharge to home or self care 10/31/2024 2:10 PM WIRE WINDING MACHINE OPERATOR Ancillary Procedure [facility] Outside Films from Last 3 Months Allergies No known active allergies Medications atorvastatin [...] vulva 08/01/2012 Abscess of Bartholin's gland 08/01/2012 Social History Tobacco Use Types Packs/Day Years Used Date Smoking Tobacco: Never Smokeless Tobacco: Never Tobacco Cessation:Counseling Given: Not Answered Comments Unknown Sex and Gender Information Value Date Recorded Sex Assigned at Not on file Legal Sex Female 8:42 PM WIRE WINDING MACHINE OPERATOR Gender Identity Not on file Sexual Orientation Not on file Last Filed Vital Signs Vital Sign Reading Time Taken Comments Blood Pressure 105/71 01/06/2025 3:53 PM WIRE WINDING MACHINE OPERATOR Pulse 92 01/06/2025 3:53 PM WIRE WINDING MACHINE OPERATOR Temperature 36.8 C (98.2 F) 01/06/2025 3:53 PM WIRE WINDING MACHINE OPERATOR Respiratory Rate 18 01/06/2025 3:53 PM WIRE WINDING MACHINE OPERATOR Oxygen Saturation 95% 01/06/2025 3:53 PM WIRE WINDING MACHINE OPERATOR Inhaled Oxygen Concentration - - Weight 76 kg (167 lb 9.6 oz) 01/06/2025 3:49 PM WIRE WINDING MACHINE OPERATOR Height 156.2 cm (5' 1.5 ) 01/06/2025 3:49 PM WIRE WINDING MACHINE OPERATOR Body Mass Index 31.15 01/06/2025 3:49 PM WIRE WINDING MACHINE OPERATOR Plan of Treatment Not on file Medical Devices Implanted Type Area Icing Maker Device Identifier Shelf Expiration Date Model / Serial / Lot Bard Peripheral Vascular Ultraclip Bard 17ga 10cm 2 Trigger Permanent Ultrasound [id number] - [id number] Implanted:Qty: 1 on 01/06/2025 at [facility] Clip Left: Breast Bard Peripheral Vascular [id number] 06/08/2027 [id number] / / [id number] Procedures Procedure Name Priority Date/Time Associated Diagnosis Comments SURGICAL PATHOLOGY Routine 01/06/2025 3: 46 PM WIRE WINDING MACHINE OPERATOR Abnormal mammogram of left breast ARMANDO POST CLIP PLACEMENT LEFT Schedule Routine, Read Routine (OP Routine) 01/06/2025 3:09 PM WIRE WINDING MACHINE OPERATOR Abnormal mammogram of left breast US GUIDED BREAST BIOPSY LEFT Schedule Routine, Read Routine (OP Routine) 01/06/2025 2:56 PM WIRE WINDING MACHINE OPERATOR Abnormal mammogram of left breast US BREAST LEFT LIMITED Schedule Routine, Read Routine (OP Routine) 01/06/2025 12:45 PM WIRE WINDING MACHINE OPERATOR Abnormal mammogram Bloody discharge from left nipple BREAST IMAGING MG DIAGNOSTIC OUTSIDE CONSULT Routine 12/24/2024 6:33 PM WIRE WINDING MACHINE OPERATOR BREAST IMAGING US OUTSIDE REFERENCE Routine 11/26/2024 1:35 PM WIRE WINDING MACHINE OPERATOR BREAST IMAGING MG DIAGNOSTIC OUTSIDE REFERENCE Routine 11/26/2024 1:05 PM WIRE WINDING MACHINE OPERATOR BREAST MRI OUTSIDE REFERENCE Routine 10/31/2024 2:10 PM WIRE WINDING MACHINE OPERATOR BREAST MRI OUTSIDE REFERENCE Routine 10/31/2024 12:00 AM WIRE WINDING MACHINE OPERATOR from Last 3 Months Results * Surgical pathology (01/06/2025 3:46 PM WIRE WINDING MACHINE OPERATOR) Tissue (Breast biopsy, needle core) 01/06/2025 2:51 PM WIRE WINDING MACHINE OPERATOR Narrative PATHOLOGY CH - 01/08/2025 12:33 PM WIRE WINDING MACHINE OPERATOR EPIC results best viewed via link to PDF [facility] Department of Pathology [address] [place], [place] [id number] Note to Patients: This report may contain [...] Final Report Patient Name: JESSICA PARKER Address: [address] [place] [address] Gender: F : 1970 (Age: 54) Service: Location: Hospital #: [id number] Patient Type: Ancillary Taken: 01/06/2025 Received: 01/06/2025 [...] determined by the Surgical Pathology Department at [facility] as part of an ongoing quality improvement analyst program and in compliance with federally mandated [...] characteristics determined by the Surgical Pathology Department [facility]. It has not been cleared or approved by the U. S. Food and Drug Administration. Note for decalcified specimens: This assay has not been validated on decalcified tissues. Results should be interpreted with caution given the possibility of false negativity on decalcified specimens Rea Aburto MD PhD LAB PATHO LOGY ORDERABLES Final Result Performing Organization Address City/State/[facility] Co de Phone Number PATHOLOGY [address] [place] [address] * Armando Post Clip Placement Left (01/06/2025 3:09 PM WIRE WINDING MACHINE OPERATOR) Anatomical Region Laterality Modality Breast Left Mammography 01/06/2025 3:12 PM WIRE WINDING MACHINE OPERATOR Addenda Addendum by Mary Borges MD on 01/08/2025 1:48 PM WIRE WINDING MACHINE OPERATOR ADDENDUM: Pathology from biopsy of the left [...] will be discussed with the patient by [facility] or referring provider staff and will be separately documented in the medical record. Electronically signed by: MARY BORGES MD Impressions 01/06/2025 3:12 PM WIRE WINDING MACHINE OPERATOR Successful core needle biopsy of the LEFT breast. Pathology is pending. ASSESSMENT: Post Procedure Mammograms for Marker Placement Electronically signed by: MARY BORGES MD Narrative 01/06/2025 3:12 PM WIRE WINDING MACHINE OPERATOR EXAMINATION: LEFT BREAST CORE BIOPSY UTILIZING SONOGRAPHIC [...] the nipple discharge that was previously seen. Bristol tissue marker clip was then placed at [...] expected position. The attending radiologist, Dr. MARY BORGES, MD, performed the procedure. IMPRESSION: Successful core needle biopsy of the LEFT breast. Pathology is pending. ASSESSMENT: Post Procedure Mammograms for Marker Placement Electronically signed by: MARY BORGES MD Rea Aburto MD PhD IMG MAMMO PROCEDURES Edited Result - Final * US Guided Breast Biopsy Left (01/06/2025 2:56 PM WIRE WINDING MACHINE OPERATOR) Anatomical Region Laterality Modality Breast Left Ultrasound 01/06/2025 3:12 PM WIRE WINDING MACHINE OPERATOR Addenda Addendum by Mary Borges MD on 01/08/2025 1:48 PM WIRE WINDING MACHINE OPERATOR ADDENDUM: Pathology from biopsy of the left [...] be discussed with the patient by [facility] or referring provider staff and will be separately documented in the medical record. Electronically signed by: MARY BORGES MD Impressions 01/06/2025 3:12 PM WIRE WINDING MACHINE OPERATOR Successful core needle biopsy of the LEFT breast. Pathology is pending. ASSESSMENT: Post Procedure Mammograms for Marker Placement Electronically signed by: MARY BORGES MD Narrative 01/06/2025 3:12 PM WIRE WINDING MACHINE OPERATOR EXAMINATION: LEFT BREAST CORE BIOPSY UTILIZING SONOGRAPHIC [...] Dr. MARY BORGES MD, performed the procedure. Rea Aburto MD PhD IMG MAMMO PROCEDURES Edited Result - Final * (ABNORMAL) US Breast Left Limited (01/06/2025 12:45 PM WIRE WINDING MACHINE OPERATOR) Anatomical Region Laterality Modality Breast Left Ultrasound 01/06/2025 3:07 PM WIRE WINDING MACHINE OPERATOR Impressions 01/06/2025 3:07 PM WIRE WINDING MACHINE OPERATOR Abnormally dilated duct with either intraductal soft [...] MARY BORGES MD Narrative 01/06/2025 3:07 PM WIRE WINDING MACHINE OPERATOR EXAMINATION: LEFT BREAST ULTRASOUND HISTORY: 54-year-old female [...] Imaging DX Outside Consult (12/24/2024 6:33 PM WIRE WINDING MACHINE OPERATOR) Anatomical Region Laterality Modality Breast N/A Mammography 12/25/2024 12:5 4 PM WIRE WINDING MACHINE OPERATOR Impressions 12/25/2024 1:24 PM WIRE WINDING MACHINE OPERATOR Abnormal linear clumped and branching non-mass enhancement [...] images may or may not represent the rincon source data set and thus may contain changes which may lower the sensitivity of the second opinion interpretation. Dictated by: Ricky Burgess D.O. The radiology attending physician has personally reviewed this study, and had reviewed and/or edited this written report and agrees with it. Electronically signed by: Nela Mcadams M.D. Narrative 12/25/2024 1:24 PM WIRE WINDING MACHINE OPERATOR EXAMINATION: REVIEW AND INTERPRETATION OF OUTSIDE IMAGING FACILITY PERFORMING OUTSIDE IMAGING: [facility] EXAM(S) REVIEWED: 1. BILATERAL SCREENING MAMMOGRAM WITH [...] OF OUTSIDE IMAGING FACILITY PERFORMING OUTSIDE IMAGING: [facility] EXAM(S) REVIEWED: 1. BILATERAL SCREENING MAMMOGRAM WITH [...] images may or may not represent the rincon source data set and thus may contain [...] Imaging US Outside Reference (11/26/2024 1:35 PM WIRE WINDING MACHINE OPERATOR) Narrative RAD_PACS_[facility] - 12/22/2024 2:58 PM WIRE WINDING MACHINE OPERATOR This order has been auto-finalized and does not contain a result. us Provider Transcribed Order IMG MAMMO PROCEDURES Final Result [facility]_PACS_CH * Breast Imaging Diagnostic Outside Reference (11/26/2024 1:05 PM WIRE WINDING MACHINE OPERATOR) Narrative RAD_PACS_[facility] - 12/22/2024 2:58 PM WIRE WINDING MACHINE OPERATOR This order has been auto-finalized and does not contain a result. us Provider Transcribed Order IMG MAMMO PROCEDURES Final Result Performing Organization Address [facility] de Phone Number RAD_PACS_[facility] * Breast MRI Outside Reference (10/31/2024 2:10 PM WIRE WINDING MACHINE OPERATOR) Narrative RAD_PACS_[facility] - 12/22/2024 2:58 PM WIRE WINDING MACHINE OPERATOR This order has been auto-finalized and does not contain a result. us Provider Transcribed Order IMG MAMMO PROCEDURES Final Result Performing Organization Address [facility] de Phone Number RAD_PACS_[facility] * Breast MRI Outside Reference (10/31/2024 12:00 AM WIRE WINDING MACHINE OPERATOR) Impressions RAD_MAMMO_[facility] - 12/24/2024 6:07 PM WIRE WINDING MACHINE OPERATOR These images are for Reference purposes only and have not been reviewed by [facility] Radiology. There will be no report generated by a [facility] Radiologist. Narrative RAD_MAMMO_[facility] - 12/24/2024 6:07 PM WIRE WINDING MACHINE OPERATOR EXAMINATION: Images For Reference Purposes Only us Rea Aburto MD PhD IMG MAMMO PROCEDURES Final Result Performing Organization Address [facility] Co de Phone Number RAD_MAMMO_[facility] from Last 3 Months Insurance [facility] CHO[facility] PLUS [facility] PLUS Care Teams Public Health Educator Relationship Specialty Start Date End Date Jan Wellington PA [address] [place] [phone] PCP - General Internal Medicine 11/26/24 Marcos Velasco MD [address] [facility] [address] [place] [address] Referring Physician Obstetrics and Gynecology 11/26/24
--- OUTSIDE RECORDS SUMMARY | 2025-01-28 09:15 | XMS_ITS | Encounter Summary ---
Author Organization [facility] Address [address] [facility] [address] [place] [address] Phone Care Team Providers Care Kennel Assistant Name Role Phone Marcos Velasco MD Unavailable [phone] Jan Wellington Primary Care Provider + Encounter Details Date Type Department Care Team (Late st Contact Info) Description 01/08/2025 Results Follow-Up [facility] Surgery [address] [facility] Floor 8 [place] [phone] Rea Aburto MD PhD [address] [facility] [phone] [place] [address] Social History Tobacco Use Types Packs/Day Years Used Date Smoking Tobacco: Never Smokeless Tobacco: Never Comments Unknown Sex and Gender Information Value Date Recorded Sex Assigned at Not on file Legal Sex Female 8:42 PM AIRCONDITIONING DRAFTING OFFICER Gender Identity Not on file Sexual Orientation Not on file documented as of this encounter Plan of Treatment Not on file documented as of this encounter Visit Diagnoses Not on filedocumented in this encounter Care Teams Kennel Assistant Relationship Specialty [place] [address] [place] [id number] PCP - General Internal Medicine 11/26/24 Marcos Velasco MD [address] [place] [address] Referring Physician Obstetrics and Gynecology 11/26/24 documented as of this encounter
[2025-01-28] MEDS: PERFLUTREN LIPID MICROSPHERES 1.5 ML VIAL DILUTED TO 10 ML TOTAL VOLUME IV PUSH (10:43)
--- NOTE | 2025-01-28 10:43 | IVDEFINITY ---
Prior to administration of IV Definity the patient was educated on the risks and benefits of the imaging enhancing agent including potential adverse side effects. The patient verbalized understanding. Allergies were verified. No exclusion criteria were identified and at least one of the following inclusion criteria were met: 1) physician request, 2) patient technically difficult to image (per the [place] [employer] Echocardi[employer] guidelines of two or more segments not discernable within the apical view), or 3) questionable left ventricular function. ?
== END 2025-01-28 08:43 | disposition home or self-care (01) ==
PROVIDERS: PCP Physician Assistant; Visit Provider Internal Medicine Cardiovascular Disease
DX: Z01.810 Encounter for preprocedural cardiovascular examination (principal); I51.89 Other ill-defined heart diseases; I51.7 Cardiomegaly; R06.09 Other forms of dyspnea
CPT/HCPCS: 78452; 93017; A9502; C8929; J2785; Q9957